=== PATIENT | female | born 1980 | race Caucasian/White ===

== ENCOUNTER 2023-05-31 21:06 | Outpatient (OUT) | payer OTHER, MEDICAID, SELFPAY ==
[2023-06-05 08:10] LABS: Age Gdln ACOG Testing Note (.); HPV Aptima Negative (Negative); IGP, Aptima HPV, rfx 16/18,45 Note (.)
== END 2023-05-31 21:07 | disposition home or self-care (01) ==
PROVIDERS: PCP Internal Medicine; Visit Provider Physician Assistant
DX: Z12.4 Encounter for screening for malignant neoplasm of cervix (principal); Z11.51 Encounter for screening for human papillomavirus (HPV)
CPT/HCPCS: 87624; G0145

== ENCOUNTER 2023-06-09 07:30 | Outpatient (OUT) | payer OTHER, MEDICAID, SELFPAY ==
[2023-06-09 08:25] LABS: Free T3 2.57 pg/mL (2.18-3.98); Thyroid Stimulating Hormone 0.176 uIU/mL (0.358-3.740)
[2023-06-09 09:11] LABS: Free T4 1.13 ng/dL (0.76-1.46)
== END 2023-06-09 07:31 | disposition home or self-care (01) ==
LOC: LAB 07:35
PROVIDERS: PCP Internal Medicine; Visit Provider Physician Assistant
DX: E03.9 Hypothyroidism, unspecified (principal)
CPT/HCPCS: 36415; 84439; 84443; 84481

== ENCOUNTER 2024-08-21 19:54 | Outpatient (REF) | payer OTHER, MEDICAID, SELFPAY ==
[2024-08-28 12:09] LABS: Age Gdln ACOG Testing Note (.); HPV Aptima Negative (Negative); IGP, Aptima HPV, rfx 16/18,45 Note (.)
== END 2024-08-21 19:55 | disposition home or self-care (01) ==
LOC: LAB 19:54
PROVIDERS: Visit Provider Physician Assistant
DX: Z01.419 Encounter for gynecological examination (general) (routine) without abnormal findings (principal)
CPT/HCPCS: 88175

== ENCOUNTER 2025-09-01 21:18 | Outpatient (REF) | payer MEDICAID, SELFPAY ==
--- OUTSIDE RECORDS SUMMARY | 2025-09-01 15:40 | XMS_ITS | Encounter Summary ---
Author Organization [facility] Address [address] [place] [address] Care Team Providers Care Concrete Smoother Name Role Phone [place]enn whitten Primary Care Provider [phone] Reason for Visit * Reason Comments Gynecologic Exam Encounter Details Date Type Department Care Team (Late st Contact Info) Description 09/01/2025 3:40 PM EDT Office Visit [facility] [address] [facility] [phone] Vj Gómez DO [address] [facility] [place] [address] Well woman exam with routine gynecological exam; Encounter for screening mammogram for malignant neoplasm of breast; Encounter for weight management Social History Tobacco Use Types Packs/Day Years Used Date Smoking Tobacco: Former Cigarettes Smokeless Tobacco: Never Comments:21-30 cigs a day Alcohol Use Standard Drinks/Week Comments Yes 0 (1 standard drink = 0.6 oz pure alcohol) Caffeine intake: 1-2 cups per day Humiliation, Afraid, Rape, and Kick questionnair e Answer Date Recorded Within the last year, have y ou been afraid of your partner or ex-partner? No 08/02/2023 Within the last year, have y ou been humiliated or emotionally abused in other ways by your partner or ex-partner? No Within the last year, have y ou been kicked, hit, slapped, or otherwise physically hurt by your partner or ex-partner? No 08/02/2023 Within the last year, have y ou been raped or forced to have any kind of sexual activity by your partner or ex-partner? No 08/02/2023 Social Connection and Isolation Panel Answer Date Recorded In a typical week, how many times do you talk on the phone with family, friends, or neighbors? More than three times a week 08/02/2023 How often do you get togethe r with friends or relatives? Once a week 08/02/2023 How often do you attend chur or sabianism services? 1 to 4 times per year 08/02/2023 Do you belong to any clubs o r organizations such as jewish groups, unions, fraternal or athletic groups, or school groups? No 08/02/2023 How often do you attend meet ings of the clubs or organizations you belong to? Never 08/02/2023 Are you , , di vorced, , never , or living with a partner? Living with partner 08/02/2023 AUDIT-C Answer Date Recorded Q1: How often do you have a drink containing alc ohol? Monthly or less 08/02/2023 Q2: How many drinks containi ng alcohol do you have on a typical day when you are drinking? 1 or 2 08/02/2023 Q3: How often do you have si x or more drinks on one occasion? Never 08/02/2023 Overall Financial Resource Strain (CARDIA) Answe r Date Recorded How hard is it for you to pa y for the very basics like food, housing, medical care, and heating? Not hard at all 08/02/2023 PHQ-2 Answer Date Recorded Patient Health Questionnaire-2 Score 0 08/15/2025 [facility] - Occupational Stress Questionnaire Answer Date Recorded Do you feel stress - tense, restless, nervous, or anxious, or unable to sleep at night because your mind is troubled all the time - these days? Not at all 08/02/2023 Exercise Vital Sign Answer Date Recorde d On average, how many days pe r week do you engage in moderate to strenuous exercise (like a brisk walk)? 0 days 08/02/2023 On average, how many minutes do you engage in exercise at this level? 20 min 08/02/2023 Hunger Vital Sign Answer Date Recorded Within the past 12 months, y ou worried that your food would run out before you got the money to buy more. Never true 08/02/20 23 Within the past 12 months, t he food you bought just didn't last and you didn't have money to get more. Never true 08/02/2023 PRAPARE - Transportation Answer Date Re corded In the past 12 months, has l ack of transportation kept you from medical appointments or from getting medications? No 07/21 In the past 12 months, has l ack of transportation kept you from meetings, work, or from getting things needed for daily living? No 08/02/2023 Housing Stability Vital Sign Answer Rodrick e Recorded In the last 12 months, was t here a time when you were not able to pay the mortgage or rent on time? No 08/02/2023 In the last 12 months, how many places have you lived? 1 08/02/2023 In the last 12 months, was t here a time when you did not have a steady place to sleep or slept in a group home (including now)? No 08/02/2023 Comments No Sex and Gender Information Value Date Recorded Sex Assigned at Female 05/30/2023 6:47 PM EDT Legal Sex Female 6:58 PM EDT Gender Identity Female 05/30/2023 6:47 PM EDT Sexual Orientation Choose not to disclose 2022 6:47 PM EDT documented as of this encounter Last Filed Vital Signs Vital Sign Reading Time Taken Comments Blood Pressure 110/58 09/01/2025 4:02 PM EDT Pulse - - Temperature - - Respiratory Rate - - Oxygen Saturation - - Inhaled Oxygen Concentration - - Weight 73.4 kg (161 lb 12.8 oz) 09/01/2025 4:02 PM EDT Height 165.1 cm (5' 5 ) 09/01/2025 4:02 PM EDT Body Mass Index 26.92 09/01/2025 4:02 PM EDT documented in this encounter Plan of Treatment Upcoming Encounters Date Type Department Care Team (Late st Contact Info) Description 10/27/2025 3:30 PM EST Office Visit [facility] [address] [place] [address] [place] [address] Shayy Katz PA [address] [place] [address] [place] [address] 02/12/2026 9:20 AM EDT Office Visit [facility] [address] [facility] 230 [place] [address] Glenn Baker DO [address] [facility] 230 [place] [address] Scheduled Orders Name Type Priority Associated Diagnoses Orde r Schedule Bilateral screening mammogram Imaging Routine Encounter for screening mammogram for malignant neoplasm of breast Expected: 09/01/2025 (Approximate), Expires: 11/01/2026 THIN PREP TIS PAP AND HR HPV DNA Pathology and Cytology Routine Well woman exam with routine gynecological exam Ordered: 09/01/2025 documented as of this encounter Visit Diagnoses Diagnosis Well woman exam with routine gynecological exam Routine gynecological examination Encounter for screening mammogram for malignant neoplasm of breast Encounter for weight management documented in this encounter Care Teams Concrete Smoother Relationship Specialty Start Date End Date Glenn Baker DO [address] [facility] 230 [place] [address] PCP - General Family Medicine 10/07/24 documented as of this encounter
--- OUTSIDE RECORDS SUMMARY | 2025-09-01 21:21 | XMS_ITS | Encounter Summary ---
Author Organization [facility] Address [address] [place] [address] Care Team Providers Care Cathead Worker Name Role Phone Glenn Baker DO Unavailable [phone] Glenn Baker DO Primary Care Provider [phone] Reason for Visit * Reason Comments Med Refill Encounter Details Date Type Department Care Team (Late st Contact Info) Description 04/23/2025 Refill [facility] [address] [facility] [place] [address] [place] [phone] Glenn Baker DO [address] [facility] [place] [address] [place] [address] Metabolic syndrome Social History Tobacco Use Types Packs/Day Years [...] week 08/02/2023 How often do you attend [facility] or druze services? 1 to 4 times per year 08/02/2023 Do you belong to any clubs o r organizations such as tenriism groups, unions, fraternal or athletic groups, or [...] Date Recorded Patient Health Questionnaire-2 Score 0 08/02/2023 [facility] Occupat ional Health - Occupational Stress [...] money to buy more. Never true 08/02/20 Within the past 12 months, t he [...] place to sleep or slept in a penitentiary (including now)? No 08/02/2023 Comments No Sex and Gender Information Value Date Recorded Sex Assigned at Female 05/30/2023 6:47 PM EDT Legal Sex Female 6:58 PM EDT Gender Identity Female 05/30/2023 6:47 PM EDT Sexual Orientation Choose not to disclose 2022 6:47 PM EDT documented as of this encounter Miscellaneous Notes * Telephone Encounter - Alivia Luu MA - 04/23/2025 12:55 PM EDT duplicate documented in this encounter Plan of Treatment Upcoming Encounters Date Type Department Care Team (Late st Contact Info) Description 10/27/2025 3:30 PM EST Office Visit [facility] [address] [facility] [place] [phone] Shayy Katz PA [address] [facility] [address] [place], [place] [id number] 02/12/2026 9:20 AM EDT Office Visit [facility] [address] [place] [address] [place] [address] Glenn Baker DO [address] [place] [address] [place] [address] documented as of this encounter Visit Diagnoses Diagnosis Metabolic syndrome Dysmetabolic Syndrome X documented in this encounter Care Teams Cathead Worker Relationship Specialty Start Date End Date Glenn Baker DO [address] [facility] 230 [place] [address] PCP - Medical [place] [employer] 11/20/22 06/12/25 Glenn Baker DO [address] [facility] 230 [place] [address] PCP - General Family Medicine 10/07/24 documented as of this encounter
--- OUTSIDE RECORDS SUMMARY | 2025-09-01 21:21 | XMS_ITS | Encounter Summary ---
Author Organization [facility] Address [address] [place] [address] Care Team Providers Care Flue Tile Press Operator Name Role Phone Glenn Baker DO Unavailable [phone] Olivia Glenn Ena DO Primary Care Provider [phone] Encounter Details Date Type Department Care Team (Late st Contact Info) Description 08/29/2024 Orders Only [facility] [address] [place] [address] Gaby Mcelroy LPN [address] [place] [id number] Social History Tobacco Use Types Packs/Day Years [...] week 08/02/2023 How often do you attend [facility] or moravian services? 1 to 4 times per year 08/02/2023 Do you belong to any clubs o r organizations such as synagogue groups, unions, fraternal or athletic groups, or [...] Recorded Patient Health Questionnaire-2 Score 0 08/02/2023 [facility] Occupat ional Health - Occupational Stress [...] place to sleep or slept in a assisted (including now)? No 08/02/2023 Comments No Sex and Gender Information Value Date Recorded Sex Assigned at Female 05/30/2023 6:47 PM EDT Legal Sex Female 6:58 PM EDT Gender Identity Female 05/30/2023 6:47 PM EDT Sexual Orientation Choose not to disclose 2022 6:47 PM EDT documented as of this encounter Plan of Treatment Upcoming Encounters Date Type Department Care Team (Late st Contact Info) Description 10/27/2025 3:30 PM EST Office Visit [facility] [address] [facility] [place] [address] Shayy Katz PA [address] [facility] [place] [address] 02/12/2026 9:20 AM EDT Office Visit [facility] [address] [facility] 230 [place] [phone] Glenn Baker DO [address] [place] 230 [place] [address] documented as of this encounter Procedures Procedure Name Priority Date/Time Associated Diagnosis Comments PAP SMEAR Routine 08/21/2024 12:00 AM EDT documented in this encounter Results * Pap Smear (08/21/2024 12:00 AM EDT) Swab Cervical swab / Unknown [facility] ORDER[facility]LES Final Re sult EXTERNAL LAB documented in this encounter Visit Diagnoses Not on filedocumented in this encounter Care Teams Flue Tile Press Operator Relationship Specialty Start Date End Date Glenn Baker DO [address] [place] [address] [place] [address] PCP - Medical [place] [employer] 11/20/22 06/12/25 Glenn Baker DO [address] [place] 230 [place] [address] PCP - General Family Medicine 10/07/24 documented as of this encounter
--- OUTSIDE RECORDS SUMMARY | 2025-09-01 21:22 | XMS_ITS | Encounter Summary ---
Author Organization [facility] Address [address] [place] [address] Care Team Providers Care Material Combiner Name Role Phone Glenn Baker DO Unavailable [phone] Shaikh ILIA Dickens Primary Care Provider [phone] Glenn Baker DO Primary Care Provider [phone] Encounter Details Date Type Department Care Team (Late st Contact Info) Description 08/05/2024 Abstract [facility] [address] [facility] [place] [phone] Vj Gómez DO [address] [facility] [address] [place], [facility] Social History Tobacco Use Types Packs/Day Years [...] How often do you attend chur or gnosticism services? 1 to 4 times per year 08/02/2023 Do you belong to any clubs o r organizations such as advent groups, unions, fraternal or athletic groups, or [...] Recorded Patient Health Questionnaire-2 Score 0 08/02/2023 [facility] Occupat ional Health - [...] place to sleep or slept in a correction (including now)? No 08/02/2023 Comments No Sex [...] PM EST Office Visit [facility] [address] [facility] [place] [address] Shayy Katz PA [address] [facility] [address] [place], [place] [phone] 02/12/2026 9:20 AM EDT Office Visit [facility] [address] [place] [address] [place] [phone] Glenn Baker, DO [address] [place] [address] [place], [place] [phone] documented as of this encounter Visit Diagnoses Not on filedocumented in this encounter Care Teams Material Combiner Relationship Specialty Start Date End Date Glenn Baker DO [address] [place] [address] [place] [address] PCP - Medical [place] [employer] 11/20/22 06/12/25 Shaikh Dickens MD [address] [place] 230 [place] [address] PCP - General Internal Medicine 07/18/24 08/20/24 Glenn Baker DO [address] [place] [address] [place] [address] PCP - General Family Medicine 10/07/24 documented as of this encounter
--- OUTSIDE RECORDS SUMMARY | 2025-09-01 21:22 | XMS_ITS | Encounter Summary ---
Author Organization [facility] Address [address] [place] [address] Care Team Providers Care Nutrition Aides Teacher Name Role Phone Glenn Baker DO Unavailable [phone] Glenn Baker DO Primary Care Provider [phone] Reason for Visit * Reason Comments Med Refill Encounter Details Date Type Department Care Team (Late st Contact Info) Description 04/22/2025 Refill [facility] [address] [facility] [place] [phone] Shayy Katz PA [address] [facility] [address] [place], [facility] Metabolic syndrome Social History Tobacco Use Types [...] week 08/02/2023 How often do you attend [facility] or muslim services? 1 to 4 times per year 08/02/2023 Do you belong to any clubs o r organizations such as muslim groups, unions, fraternal or athletic groups, or [...] Recorded Patient Health Questionnaire-2 Score 0 08/02/2023 [facility] Occupat ional Health - Occupational Stress [...] PM EST Office Visit [facility] [address] [facility] [place] [phone] Shayy Katz PA [address] [facility] [place] [address] 02/12/2026 9:20 AM EDT Office Visit [facility] [address] [place] [address] [place] [phone] Glenn Baker DO [address] [place] [address] [place] [address] documented as of this encounter Visit Diagnoses Diagnosis Metabolic syndrome Dysmetabolic Syndrome X documented in this encounter Care Teams Nutrition Aides Teacher Relationship Specialty Start Date End Date Glenn Baker DO [address] [place] 230 [place] [address] PCP - Medical [place] [employer] 11/20/22 06/12/25 Glenn Baker DO [address] [facility] 230 [place] [address] PCP - General Family Medicine 10/07/24 documented as of this encounter
--- OUTSIDE RECORDS SUMMARY | 2025-09-01 21:22 | XMS_ITS | Encounter Summary ---
Author Organization [facility] Address [address] [place] [address] Care Team Providers Care Industrial Energy Engineer Name Role Phone Glenn Baker DO Primary Care Provider Encounter Details Date Type Department Care Team (Late st Contact Info) Description 08/21/2025 [facility] [address] [facility] [place] 230 [place] [phone] Glenn Baker DO [address] [facility] [place] [address] [place] [address] Tsh+free t4, T3, free, Hemoglobin A1c, Additional followed-up results: 4 Social History Tobacco Use Types Packs/Day Years [...] week 08/02/2023 How often do you attend [facility] or baptism services? 1 to 4 times per year 08/02/2023 Do you belong to any clubs o r organizations such as worship groups, unions, fraternal or athletic groups, or [...] Recorded Patient Health Questionnaire-2 Score 0 08/15/2025 [facility] of Occupat ional Health - Occupational [...] place to sleep or slept in a longterm (including now)? No 08/02/2023 Comments No Sex [...] PM EST Office Visit [facility] [address] [facility] [place] [phone] Shayy Katz PA [address] [facility] [place] [address] 02/12/2026 9:20 AM EDT Office Visit [facility] [address] [place] [address] [place] [address] Glenn Baker DO [address] [place] [address] [place] [address] documented as of this encounter Visit Diagnoses Not on filedocumented in this encounter Care Teams Industrial Energy Engineer Relationship Specialty Start Date End Date Glenn Baker DO [address] [address] PCP - General Family Medicine 10/07/24 documented as of this encounter
--- OUTSIDE RECORDS SUMMARY | 2025-09-01 21:22 | XMS_ITS | Clinical Summary ---
Author Organization [facility] Address [address] [place] [address] Care Team Providers Care Director Distribution Name Role Phone BloomfieldGlenn whitten Primary Care Provider Allergies Active Allergy Reactions Criticality Noted Date Comments Latex 05/30/2023 Nsaids 08/13/2025 Other Reaction(s): Unknown Sulfamethoxazole Dermatitis,Diarrhea, Hiv es,Itching,Rash Low 08/02/2023 Medications cholecalciferol (Vitamin D-3) 25 MCG (1000 UT) capsule Vitamin D3 Active chlorhexidine (Peridex) 0.12 % solution Rinse 15 mL twice daily after breakfast and before bedtime NEEDED FOR 30 DAYS 024 Active albuterol HFA 90 mcg/act inhalerIndicatio ns:Shortness of breath INHALE 2 PUFFS BY MOUTH EVERY 4 HOURS NEEDED FOR WHEEZING 18 g 11 025 Active levothyroxine (Synthroid, Levoxyl) 50 MCG tabletIndication s:Postoperative hypothyroidism Take 1 tablet (50 mcg) by mouth in the morning. Take before meals. 90 tablet 3 025 Active liothyronine (Cytomel) 5 MCG tabletIndication s:Postoperative hypothyroidism Take 1 tablet (5 mcg) by mouth Daily 30 tablet 025 Active Tirzepatide (Mounjaro) 7.5 MG/0.5ML solution auto-injectorInd ications:Metabol ic syndrome Inject 7.5 mg under the skin 1 (one) time per week 2 mL 11 09/26/2 025 Active pantoprazole (Protonix) 40 MG EC tabletIndication s:Gastroesophage al reflux disease without esophagitis Take 1 tablet (40 mg) by mouth in the morning. Take before meals. 90 tablet 3 Active sucralfate (Carafate) 1 g tabletIndication s:Gastroesophage al reflux disease without esophagitis Take 1 tablet (1 g) by mouth every 6 (six) hours if needed (reflux) 120 tablet Active famotidine (Pepcid) 20 MG tabletIndication s:Chronic peptic ulcer, site unspecified, without hemorrhage or perforation Take 1 tablet (20 mg) by mouth Daily 30 tablet 3 Active escitalopram (Lexapro) 20 MG tabletIndication s:Anxiety and depression Take 1 tablet (20 mg) by mouth in the morning. 30 tablet 11 Active fluticasone (Flonase) 50 MCG/ACT nasal sprayIndications :Allergic rhinitis, unspecified seasonality, unspecified trigger Administer 2 sprays into each nostril in the morning and 2 sprays before bedtime. Shake gently. Before first use, prime pump. After use, clean tip and replace cap. 32 g Active levocetirizine (Xyzal) 5 MG tabletIndication s:Allergic rhinitis, unspecified seasonality, unspecified trigger Take 1 tablet (5 mg) by mouth Daily 90 tablet 3 Active phentermine (Adipex-P) 37.5 MG tabletIndication s:Encounter for weight management Take 1 tablet (37.5 mg) by mouth in the morning. Take before meals. 30 tablet 025 2024 Active escitalopram (Lexapro) 20 MG tabletIndication s:Anxiety and depression Take 1 tablet (20 mg) by mouth in the morning. 30 tablet 11 024 2024 Discontinued(R eorder) levocetirizine (Xyzal) 5 MG tabletIndication s:Allergic rhinitis, unspecified seasonality, unspecified trigger Take 1 tablet (5 mg) by mouth Daily 90 tablet 3 024 2024 Discontinued(R eorder) levothyroxine (Synthroid, Levoxyl) 50 MCG tabletIndication s:Postoperative hypothyroidism Take 1 tablet (50 mcg) by mouth in the morning. Take before meals. 90 tablet 3 2024 Discontinued(R eorder) pantoprazole (Protonix) 40 MG EC tabletIndication s:Gastroesophage al reflux disease without esophagitis Take 1 tablet (40 mg) by mouth in the morning. Take before meals. 90 tablet 3 2024 Discontinued(R eorder) fluticasone (Flonase) 50 MCG/ACT nasal sprayIndications :Allergic rhinitis, unspecified seasonality, unspecified trigger Administer 2 sprays into each nostril in the morning and 2 sprays before bedtime. Shake gently. Before first use, prime pump. After use, clean tip and replace cap.. 32 g 11 2024 Discontinued(R eorder) liothyronine (Cytomel) 5 MCG tabletIndication s:Postoperative hypothyroidism TAKE 1 TABLET BY MOUTH DAILY 30 tablet 6 2024 Discontinued(R eorder) buPROPion (Wellbutrin) 75 MG tabletIndication s:Overweight Take 2 tablets (150 mg) by mouth in the morning and 2 tablets (150 mg) before bedtime. 120 tablet 11 2024 Discontinued naltrexone (Depade) 50 MG tabletIndication s:Overweight Take 1 tablet (50 mg) by mouth Daily 30 tablet 11 2024 Discontinued famotidine (Pepcid) 20 MG tabletIndication s:Chronic peptic ulcer, site unspecified, without hemorrhage or perforation TAKE 1 TABLET BY MOUTH DAILY 30 tablet 3 2024 Discontinued(R eorder) sucralfate (Carafate) 1 g tabletIndication s:Gastroesophage al reflux disease without esophagitis TAKE 1 TABLET BY MOUTH FOUR TIMES DAILY NEEDED 120 tablet 3 2024 Discontinued(R eorder) Mounjaro 7.5 MG/0.5ML solution auto-injectorInd ications:Metabol ic syndrome INJECT 7.5mg SUBCUTANEOUSLY (UNDER THE SKIN) ONCE A WEEK 2 mL 5 Discontinued(R eorder) liothyronine (Cytomel) 5 MCG tabletIndication s:Postoperative hypothyroidism Take 1 tablet (5 mcg) by mouth Daily 30 tablet 025 2024 Discontinued(R eorder) fluconazole (Diflucan) 150 MG tabletIndication s:Yeast infection Take 1 tablet (150 mg) by mouth 1 (one) time for 1 dose This is a 1 time dose, take single tablet by mouth. 1 tablet 1 025 2024 Hospital, Clinic, or Other Facility Administered Medication Ordered Dose Route Frequency Start Date End Date Status ketorolac (Toradol) injection 30 mgIndications:Right hip pain 30 mg IM Once 08/15/2025 08/15/2025 Ended Active Problems Problem Noted Date Diagnosed Date Osteoarthritis of knee 08/13/2025 Chondromalacia 08/13/2025 Chondromalacia of left knee 08/13/2025 Peripheral venous insufficiency 08/21/2024 Allergic rhinitis 08/01/2023 Insulin resistance 08/01/2023 Internal derangement of left knee 08/01/2023 Multinodular goiter 08/01/2023 Nontoxic single thyroid nodule 08/01/2023 Post-operative hypothyroidism 08/01/2023 Smoker 08/01/2023 Hypothyroidism 08/29/2013 Palpitations 08/29/2013 Tachycardia 08/29/2013 Encounters Date Type Department Care Team Description 09/01/2025 3:40 PM EDT [facility] Visit [facility] [address] [place] [address] Vj Gómez DO Well woman exam with routine gynecological exam; Encounter for screening mammogram for malignant neoplasm of breast; Encounter for weight management 09/01/2025 Bamboo flowsheet [facility] [address] [place] [address] Vj Gómez DO 08/22/2025 Telephone [facility] [address] [place] [address] Bharati Gordillo MA 08/21/2025 Results Follow-Up [facility] [address] [place] [phone] Glenn Baker, DO Tsh+free t4, T3, free, Hemoglobin A1c, Additional followed-up results: 4 08/15/2025 9:00 AM EDT Office Visit [facility] [address] [place] [phone] Glenn Baker, Postoperative hypothyroidism ; Metabolic syndrome; Gastroesophageal reflux disease without esophagitis; Chronic peptic ulcer, site unspecified, without hemorrhage or perforation; Anxiety and depression ; Allergic rhinitis, unspecified seasonality, unspecified trigger; Insulin resistance; Encounter for screening for coronary artery disease; Right hip pain 08/15/2025 Bamboo flowsheet [facility] [address] [place] [id number] Glenn Baker, 08/15/2025 Travel 08/04/2025 Refill [facility] [address] [place] [phone] Alivia Luu MA Postoperative hypothyroidism ; Insulin resistance; Encounter for screening for coronary artery disease; Screening for colon cancer from Last 3 Months Family History Medical History Relation Name Comments No Known Problems Daughter Cancer Father Americo Throat cancer Father Americo Diabetes Maternal Grandfather Chin Heart disease Maternal Grandfather Chin Stroke Maternal Grandfather Chin Arthritis Maternal Grandmother Kacey Diabetes Maternal Grandmother Kacey Mental illness Maternal Grandmother Kacey Stroke Maternal Grandmother Kacey Cancer Mother Dolores Diabetes Mother Dolores Learning disabilities Mother Dolores Lung cancer Mother Dolores Stroke Paternal Grandfather Chin Cancer Paternal Grandmother Kacey No Known Problems Son Relation Name Status Comments Daughter Alive Father Americo Maternal Grandfather Chin Maternal Grandmother Kacey Mother Dolores Alive Paternal Grandfather Chin Paternal Grandmother Kacey Sister 1 Alive 2 sisters Sister 2 Alive Son Alive Social History Tobacco Use Types Packs/Day Years Used Date Smoking Tobacco: Former Cigarettes Smokeless Tobacco: Never Tobacco Cessation:Counseling Given: Yes Comments:21-30 cigs a day Alcohol Use Standard [...] week 08/02/2023 How often do you attend formerly [facility] or anabaptism services? 1 to 4 times per year 08/02/2023 Do you belong to any clubs o r organizations such as episcopal groups, unions, fraternal or athletic groups, or [...] Recorded Patient Health Questionnaire-2 Score 0 08/15/2025 [facility] - [...] place to sleep or slept in a skilled nursing (including now)? No 08/02/2023 Comments No Sex and Gender Information Value Date Recorded Sex Assigned at Female 05/30/2023 6:47 PM EDT Legal Sex Female 6:58 PM EDT Gender Identity Female 05/30/2023 6:47 PM EDT Sexual Orientation Choose not to disclose 2022 6:47 PM EDT Last Filed Vital Signs Vital Sign Reading Time Taken Comments Blood Pressure 110/58 09/01/2025 4:02 PM EDT Pulse 93 08/15/2025 8:59 AM EDT Temperature 36.1 C (97 F) 08/15/2025 8:59 AM EDT Respiratory Rate - - Oxygen Saturation 97% 08/15/2025 8:59 AM EDT Inhaled Oxygen Concentration - - Weight 73.4 kg (161 lb 12.8 oz) 09/01/2025 4:02 PM EDT Height 165.1 cm (5' 5 ) 09/01/2025 4:02 PM EDT Body Mass Index 26.92 09/01/2025 4:02 PM EDT Plan of Treatment Upcoming Encounters Date Type Department Care Team (Late st Contact Info) Description 10/27/2025 3:30 PM EST Office Visit [facility] [address] [place] [address] Shayy Katz PA [address] [place] [address] 02/12/2026 9:20 AM EDT Office Visit [facility] [address] [place] [phone] Glenn Baker DO [address] [place] [address] Health Maintenance Due Date Last Done Comments CT Colonography 1979 Colonoscopy 1979 FIT 1979 FOBT 1979 Sigmoidoscopy 1979 Influenza Vaccine (#1) 2025 Mammogram 10/28/2025 10/28/2024, 07/19/2023 Colorectal Cancer Screening 08/18/2028 FIT-DNA 08/18/2028 08/18/2025 Cervical Cancer Screening Discontinued Pap Smear Discontinued 08/21/2024, 05/31/2023, 03/21 HPV/Cotest Discontinued Procedures Procedure Name Priority Date/Time Associated Diagnosis Comments LAB COLOGUARD COLON CANCER SCREEN Routine 08/18/2025 10:44 AM EDT Screening for colon cancer LIPID PANEL Routine 08/13/2025 9:51 AM EDT Postoperative hypothyroidism Insulin resistance Encounter for screening for coronary artery disease COMPREHENSIVE METABOLIC PANEL Routine 08/13/2025 9:51 AM EDT Postoperative hypothyroidism Insulin resistance Encounter for screening for coronary artery disease CBC (INCLUDES DIFF/PLT) Routine 08/13/2025 9:51 AM EDT Postoperative hypothyroidism Insulin resistance Encounter for screening for coronary artery disease HEMOGLOBIN A1C Routine 08/13/2025 9:51 AM EDT Insulin resistance T3, FREE Routine 08/13/2025 9:51 AM EDT Postoperative hypothyroidism TSH+FREE T4 Routine 08/13/2025 9:51 AM EDT Postoperative hypothyroidism BI MAMMOGRAM DIAGNOSTIC TOMOSYNTHESIS BILATERAL Routine 10/28/2024 2:13 PM EST Mass of upper outer quadrant of left breast PAP SMEAR Routine 08/21/2024 12:00 AM EDT from Last 3 Months or Most Recently Relevant to Health Maintenance Results * Cologuard?? colon cancer screening (08/18/2025 10:44 AM EDT) NONINV COLON CA DNA+OCC BLD SCRN STL-IMP Negative Negative 08/21/2025 5:22 AM EDT [facility] (CLIA #:[id number]) Comment: The Cologuard (TM) test was performed on this specimen. NEGATIVE TEST RESULT. A negative Cologuard result indicates a low likelihood that a colorectal cancer (CRC) or advanced adenoma (adenomatous polyps with more advanced pre-malignant features) is present. The chance that a person with a negative Cologuard test has a colorectal cancer is less than 1 in 1500 (negative predictive value >99.9%) or has an advanced adenoma is less than 5.3% (negative predictive value 94.7%). These data are based on a prospective cross-sectional study of 10,000 individuals at average risk for colorectal cancer who were screened with both Cologuard and colonoscopy. (Subha Reno al, N Engl J Med 2014;370(14):1286- 1297) The normal value (reference range) for this assay is negative. COLOGUARD RE-SCREENING RECOMMENDATION: Periodic colorectal cancer screening is an important part of preventive healthcare for asymptomatic individuals at average risk for colorectal cancer. Following a negative Cologuard result, the [place] Cancer Society and U.S. Multi-Society Task Force screening guidelines recommend a Cologuard re-screening interval of 3 years. References: [place] [employer] Society Guideline for Colorectal Cancer Screening: https://www.cancer.org/cancer/xrans-pkjpsc-crjhna/ifcutuyuz-tmvqphvvt-tpxznoo/ac s-rec ommendations.html.; Mynor DK, Zahida OLGUIN, Tray YaK, Colorectal Cancer Screening: Recommendations for Physicians and Patients from the U.S. Multi-Society Task Force on Colorectal Cancer Screening , Am J Gastroenterology 2017; 112:6472-2542. TEST DESCRIPTION: Composite algorithmic analysis of stool DNA-biomarkers with hemoglobin immunoassay. Quantitative values of individual biomarkers are not reportable and are not associated with individual biomarker result reference ranges. Cologuard is intended for colorectal cancer screening of adults of either sex, 45 years or older, who are at average-risk for colorectal cancer (CRC). Cologuard has been approved for use by the U.S. FDA. The performance of Cologuard was established in a cross sectional study of average-risk adults aged 50-84. Cologuard performance in patients ages 45 to 49 years was estimated by sub-group analysis of near-age groups. Colonoscopies performed for a positive result may find as the most clinically significant lesion: colorectal cancer [4.0%], advanced adenoma (including sessile serrated polyps greater than or equal to 1cm diameter) [20%] or non- advanced adenoma [31%]; or no colorectal neoplasia [45%]. These estimates are derived from a prospective cross-sectional screening study of 10,000 individuals at average risk for colorectal cancer who were screened with both Cologuard and colonoscopy. (Subha Boyd et al, N Engl J Med 2014;370(14):1778-8777.) Cologuard may produce a false negative or false positive result (no colorectal cancer or precancerous polyp present at colonoscopy follow up). A negative Cologuard test result does not guarantee the absence of CRC or advanced adenoma (pre-cancer). The current Cologuard screening interval is every 3 years. ([place] [employer] Society and U.S. Multi-Society Task Force). Cologuard performance data in a 10,000 patient pivotal study using colonoscopy as the reference method can be accessed at the following location: www.[employer]/results. Additional description of the Cologuard test process, warnings and precautions can be found at www.cologParents Journeyrd.com. Stool specimen (specimen) 08/18/2025 10:44 AM EDT 08/19/2025 11:29 AM EDT Glenn Baker DO LAB MOLECULAR DIAGNOSTICS OR DERABLES Final Result [facility] (CLIA #:[id number]) [address] [place] [address], * (ABNORMAL) Tsh+free t4 (08/13/2025 9:51 AM EDT) TSH 0.17(L) mIU/L [facility] Comment: Reference Range > or = 20 Years 0.40-4.50 Ranges First trimester 0.26-2.66 Second trimester 0.55-2.73 Third trimester 0.43-2.91 T4, FREE 1.1 0.8 - 1.8 ng/dL [facility] Blood Venous blood specimen / Unknown 08/13/2025 9:51 AM EDT 08/13/2025 9:52 AM EDT Narrative Resulting Agency Comment Performing Organization Information Site ID: QPT Name: [facility] Address: [address] [place] [address], [address] [place] [phone] Director: Clifford Shelley MD Glenn Baker DO LAB BLOOD ORDERABLES Final R esult [facility] * CBC and differential (08/13/2025 9:51 AM EDT) WHITE BLOOD CELL COUNT 5.3 3.8 - 10.8 Thousand/u L [facility] RED BLOOD CELL COUNT 4.43 3.80 - 5.10 Million/uL [facility] HEMOGLOBIN 13.8 11.7 - 15.5 g/dL [facility] HEMATOCRIT 41.4 35.0 - 45.0 % [facility] MCV 93.5 80.0 - 100.0 fL [facility] MCH 31.2 27.0 - 33.0 pg [facility] MCHC 33.3 32.0 - 36.0 g/dL [facility] Comment: For adults, a slight decrease in the calculated MCHC value (in the range of 30 to 32 g/dL) is most likely not clinically significant; however, it should be interpreted with caution in correlation with other red cell parameters and the patient's clinical condition. RDW 13.3 11.0 - 15.0 % [facility] PLATELET COUNT 326 140 - 400 Thousand/u L [facility] MPV 9.8 7.5 - 12.5 fL [facility] ABSOLUTE NEUTROPHILS 3,498 1,500 - 7,800 cells/uL [facility] ABSOLUTE LYMPHOCYTES 1,203 850 - 3,900 cells/uL [facility] ABSOLUTE MONOCYTES 408 200 - 950 cells/uL [facility] ABSOLUTE EOSINOPHILS 122 15 - 500 cells/uL [facility] ABSOLUTE BASOPHILS 69 0 - 200 cells/uL [facility] NEUTROPHILS 66 % [facility] LYMPHOCYTES 22.7 % [facility] MONOCYTES 7.7 % [facility] EOSINOPHILS 2.3 % [facility] BASOPHILS 1.3 % [facility] Blood Venous blood specimen / Unknown 08/13/2025 9:51 AM EDT 08/13/2025 9:52 AM EDT Narrative Resulting Agency Comment Performing Organization Information Site ID: QPT Name: [facility] Address: [address] [place] [phone] Director: Clifford Shelley MD us Glenn Baker DO LAB BLOOD ORDERABLES Final R esult [facility] * T3, free (08/13/2025 9:51 AM EDT) T3, FREE 3.2 2.3 - 4.2 pg/mL [facility] Blood Venous blood specimen / Unknown 08/13/2025 9:51 AM EDT 08/13/2025 9:52 AM EDT Narrative Resulting Agency Comment Performing Organization Information Site ID: QPT Name: [facility] Address: [address] [place] [address] , [address] [place] [phone] Director: Clifford Shelley MD Glenn Baker DO LAB BLOOD ORDERABLES Final R esult Performing Organization Address [facility] de Phone Number [facility] * Hemoglobin A1c (08/13/2025 9:51 AM EDT) Hemoglobin A1C 4.9 <5.7 % [facility] Comment: For the purpose of screening for the presence of diabetes: <5.7% Consistent with the absence of diabetes 5.7-6.4% Consistent with increased risk for diabetes (prediabetes) > or =6.5% Consistent with diabetes This assay result is consistent with a decreased risk of diabetes. Currently, no consensus exists regarding use of hemoglobin A1c for diagnosis of diabetes in children. According to [place] Diabetes Association (ADA) guidelines, hemoglobin A1c <7.0% represents optimal control in non- diabetic patients. Different metrics may apply to specific patient populations. Standards of Medical Care in Diabetes(ADA). Blood Venous blood specimen / Unknown 08/13/2025 9:51 AM EDT 08/13/2025 9:52 AM EDT Narrative Resulting Agency Comment Performing Organization Information Site ID: QPT Name: [facility] Address: Steven Davey , [address] [place] [phone] Director: Clifford Shelley MD Glenn aBker DO LAB BLOOD ORDERABLES Final R esult Performing Organization Address [facility] de Phone Number [facility] * Lipid panel (08/13/2025 9:51 AM EDT) CHOLESTEROL, TOTAL 157 <200 mg/dL [facility] HDL CHOLESTEROL 64 > OR = 50 mg/dL [facility] TRIGLYCERIDES 84 <150 mg/dL [facility] LDL CHOLESTEROL 77 mg/dL (calc) [facility] Comment: Reference range: <100 Desirable range <100 mg/dL for primary prevention; <70 mg/dL for patients with CHD or diabetic patients with > or = 2 CHD risk factors. LDL-C is now calculated using the Alyce calculation, which is a validated novel method providing better accuracy than the Friedewald equation in the estimation of LDL-C. Kevin SS et al. ROD. 2013;310(19): 9183-2630 (http://education.[employer].com/faq/DVL837) CHOL/HDLC RATIO 2.5 <5.0 (calc) [facility] NON HDL CHOLESTEROL 93 <130 mg/dL (calc) [facility] Comment: For patients with diabetes plus 1 major ASCVD risk factor, treating to a non-HDL-C goal of <100 mg/dL (LDL-C of <70 mg/dL) is considered a therapeutic option. Blood Venous blood specimen / Unknown 08/13/2025 9:51 AM EDT 08/13/2025 9:52 AM EDT Narrative Resulting Agency Comment Performing Organization Information Site ID: QPT Name: [facility] Address: [address] [place] [address], [address] [place] [phone] Director: Clifford Shelley MD Glenn Baker DO LAB BLOOD ORDERABLES Final R esult [facility] * Comprehensive metabolic panel (08/13/2025 9:51 AM EDT) Glucose 79 65 - 99 mg/dL [facility] Comment: Fasting reference interval BUN 12 7 - 25 mg/dL [facility] Creatinine 0.81 0.50 - 0.99 mg/dL [facility] EGFR 91 > OR = 60 mL/min/1. 73m2 [facility] BUN/CREATININE RATIO SEE NOTE: 6 - 22 (calc) [facility] Comment: Not Reported: BUN and Creatinine are within reference range. Sodium 137 135 - 146 mmol/L [facility] Potassium, Bld 4.4 3.5 - 5.3 mmol/L [facility] Chloride 104 98 - 110 mmol/L [facility] Carbon Dioxide 28 20 - 32 mmol/L [facility] Calcium 9.9 8.6 - 10.2 mg/dL [facility] PROTEIN, TOTAL 6.8 6.1 - 8.1 g/dL [facility] ALBUMIN 4.2 3.6 - 5.1 g/dL [facility] GLOBULIN 2.6 1.9 - 3.7 g/dL (calc) [facility] ALBUMIN/GLOBULIN RATIO 1.6 1.0 - 2.5 (calc) [facility] BILIRUBIN, TOTAL 0.4 0.2 - 1.2 mg/dL [facility] ALKALINE PHOSPHATASE 43 31 - 125 U/L [facility] AST 13 10 - 35 U/L [facility] ALT 12 6 - 29 U/L [facility] Blood Venous blood specimen / Unknown 08/13/2025 9:51 AM EDT 08/13/2025 9:52 AM EDT Narrative Resulting Agency Comment Performing Organization Information Site ID: QPT Name: [facility] Address: [address] [place] [address], [address] [place] [phone] Director: Clifford Shelley MD us Glenn Sutherland [place] DO LAB BLOOD ORDERABLES Final R esult [facility] * Bilateral diagnostic mammogram with tomosynthesis (10/28/2024 2:13 PM EST) Anatomical Region Laterality Modality Breast Bilateral Mammography 10/28/2024 2:36 PM EST Impressions 10/28/2024 2:48 PM EST No specific evidence of malignancy seen in either breast. BIRADS 2 - Benign Findings DENSITY: The breasts are heterogeneously dense, which may obscure small masses. FOLLOW-UP: Routine Screening Mammogram Board Certified Radiologists. Accredited by the ACR and FDA. MAMMOGRAPHY IS VERY IMPORTANT TO YOUR HEALTH. THE [place] [employer] SOCIET[employer] GUIDELINES RECOMMEND THAT WOMEN 40 YEARS OF AGE AND OLDER SHOULD HAVE A MAMMOGRAM EVERY YEAR. A REMINDER LETTER WILL BE SENT AT THE APPROPRIATE TIME. ELECTRONICALLY SIGNED BY: Javier Hand M.D. Narrative 10/28/2024 2:48 PM EST EXAMINATION: BI MAMMOGRAM DIAGNOSTIC TOMOSYNTHESIS BILATERAL CLINICAL HISTORY: L breast lump upper outer quadrant TECHNIQUE: Diagnostic digital mammogram study of both breasts was performed with 2D and 3D tomosynthesis imaging. Study was compared to the screening mammogram study of the breasts dated 07/19/2023 and ultrasound study of the left breast dated 10/28/2024. FINDINGS: Breast tissue is heterogeneously dense bilaterally. There is no evidence of interval dominant spiculated mass, grouped microcalcifications or skin thickening which would be suggestive of malignancy. Ill-defined increased density in the upper outer portion of the right breast similar to the prior reviewed studies dating back to 06/28/2022 compatible with nodular tissue. Skin marker is placed in the area of clinically palpable lump which appears to correlate with the left axillary region on the MLO view, no obvious focal abnormality. There are grossly unremarkable appearing lymph nodes in the left axillary region which appear similar to the prior reviewed studies dating back to 06/28/2022. Ultrasound study performed today demonstrates 2 grossly unremarkable appearing lymph nodes in the left axillary region, no obvious ultrasound abnormality in the area of the lump. A single benign-appearing calcification is seen on the left. Right axillary lymph nodes are also suggested. Procedure Note Javier Hand MD - 10/28/2024 EXAMINATION: BI MAMMOGRAM DIAGNOSTIC TOMOSYNTHESIS BILATERAL CLINICAL HISTORY: L breast lump upper outer quadrant TECHNIQUE: Diagnostic digital mammogram study of both breasts wasperformed with 2D and 3D tomosynthesis imaging. Study was compared to thescreening mammogram study of the breasts dated 07/19/2023 and ultrasoundstudy of the left breast dated 10/28/2024. FINDINGS: Breast tissue is heterogeneously dense bilaterally. There is noevidence of interval dominant spiculated mass, grouped microcalcificationsor skin thickening which would be suggestive of malignancy. Ill-definedincreased density in the upper outer portion of the right breast similarto the prior reviewed studies dating back to 06/28/2022 compatible withnodular tissue. Skin marker is placed in the area of clinically palpable lump whichappears to correlate with the left axillary region on the MLO view, noobvious focal abnormality. There are grossly unremarkable appearing lymphnodes in the left axillary region which appear similar to the priorreviewed studies dating back to 06/28/2022. Ultrasound study performed todaydemonstrates 2 grossly unremarkable appearing lymph nodes in the leftaxillary region, no obvious ultrasound abnormality in the area of thelump. A single benign-appearing calcification is seen on the left. Rightaxillary lymph nodes are also suggested. IMPRESSION: No specific evidence of malignancy seen in either breast. BIRADS 2 - Benign Findings DENSITY: The breasts are heterogeneously dense, which may obscure smallmasses. FOLLOW-UP: Routine Screening Mammogram Board Certified Radiologists. Accredited by the ACR and FDA. MAMMOGRAPHY IS VERY IMPORTANT TO YOUR HEALTH. THE [place] CANCER SOCIETYGUIDELINES RECOMMEND THAT WOMEN 40 YEARS OF AGE AND OLDER SHOULD HAVE AMAMMOGRAM EVERY YEAR. A REMINDER LETTER WILL BE SENT AT THE APPROPRIATE TIME. ELECTRONICALLY SIGNED BY: Javier Hand M.D. us Glenn Baker DO IMG BI PROCEDURES Final Resu lt * Pap Smear (08/21/2024 12:00 AM EDT) Swab Cervical swab / Unknown us Shayy [facility] CYTOLOGY ORDERABLES Final Re sult EXTERNAL LAB from Last 3 Months or Most Recently Relevant to Health Maintenance Insurance [employer] [place] Care Teams Director Distribution Relationship Specialty Start Date End Date Glenn Baker DO [address] [place] [address] PCP - General Family Medicine 10/07/24
--- OUTSIDE RECORDS SUMMARY | 2025-09-01 21:22 | XMS_ITS | Patient Health Record ---
Author Organization [facility] in [place] Address [address] [place] [address] Care Team Providers Care Coal Bagger Name Role Phone EDWIN VIZCAINO DO Primary Care Provider [phone] Allergies Allergen (clinical drug ingredient) Drug/Non Drug Allergy documented on EMR Reaction Allergy Type Onset Date Status Non-steroidal anti-inflammatory agent (FN) NSAIDS (uncoded) Unknown Allergy Active Reason For Referral No Information Medications Medication SIG (Take, Route, Frequency, Duration) Notes Start Date End Date Status Belviq 10 MG 1 tablet Orally Twic e a day Active Levothyroxine Sodium 75 MCG 1 capsule Or ally as directed Active Voltaren 1 % as directed External ly TID; Duration: 1 02/27/2017 Active Problems Problem Type SNOMED Code ICD Code Onset Dates Problem Status W/U Status Risk Notes Problem Chondromalacia (78431194) Chondromalacia, 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) Active confirmed Problem Osteoarthritis of knee (058479356) Primary osteoarthritis of left knee (M17.12) Active confirmed Problem Chondromalacia (43386329) Chondromalacia (M94.20) Active confirmed Plan Of Treatment No Information Insurance Providers Payer Name Payer Address Payer Phone Subscriber Number Group Number Insured Name Patient Relationship to Insured Coverage Start Date Coverage End Date [employer] [address] [place] [address] [id number] Claudia Boston Self - patient is the insured Medications Administered Medication Instructions Date of Administration Dosage Notes Depo-Medrol, 40 mg/mL 08/22/2016 1 cL Methylprednisolone Acetate 40mg/mL 11/22/2016 1 mL Synvisc-One 48 mg (Z) 09/21/2016 6 mL Medical (General) History Medical History History ICD Code Ulcers Bladder/Kidney infections Thyroid Osteoarthritis Depression/Anxiety Surgical History Surgery Date(Month/Year) Knee Repair Meniscus 2016 Left Partial Thyroid 2014 Apendix 2014 Gallbladder 2013 Tubes tied/stomach scope 2015 Hospitalization History Reason Date(Month/Year) see above
--- OUTSIDE RECORDS SUMMARY | 2025-09-01 21:22 | XMS_ITS | Encounter Summary ---
Author Organization [facility] Address [address] [place] [address] Care Team Providers Care Dyeing Machine Back Tender Name Role Phone RingtownGlenn whitten Primary Care Provider [phone] Encounter Details Date Type Department Care Team (Late st Contact Info) Description 09/01/2025 Bamboo flowsheet [facility] [address] [place] [address] Vj Gómez DO [address] [place], [facility] Social History Tobacco Use Types Packs/Day [...] 08/02/2023 How often do you attend chur ch or protestant services? 1 to 4 times per year 08/02/2023 Do you belong to any clubs o r organizations such as oriental orthodox groups, unions, fraternal or athletic groups, or [...] Recorded Patient Health Questionnaire-2 Score 0 08/15/2025 [facility] - Occupational Stress Questionnaire Answer Date Recorded [...] the money to buy more. Never true 09/13/20 23 Within the past 12 months, t [...] place to sleep or slept in a fci (including now)? No 08/02/2023 Comments No Sex [...] PM EST Office Visit [facility] [address] [place] [phone] Shayy Katz PA [address] [place], [place] [address] 02/12/2026 9:20 AM EDT Office Visit [facility] [address] [place] [address] Glenn Baker DO [address] [place] [address] documented as of this encounter Visit Diagnoses Not on filedocumented in this encounter Care Teams Dyeing Machine Back Tender Relationship Specialty Start Date End Date Glenn Baker DO [address] [facility] [address] [place] [id number] PCP - General Family Medicine 10/07/24 documented as of this encounter
--- OUTSIDE RECORDS SUMMARY | 2025-09-01 21:22 | XMS_ITS | Encounter Summary ---
Author Organization [facility] Address [address] [place] [address] Care Team Providers Care Senior Windows Engineer Name Role Phone Glenn Baker Primary Care Provider [phone] Encounter Details Date Type Department Care Team (Late st Contact Info) Description 08/22/2025 Telephone [facility] [address] [place] [address] Bharati Gordillo MA [address] [address] Social History Tobacco Use Types Packs/Day Years [...] often do you attend chur ch or buddhism services? 1 to 4 times per year 08/02/2023 Do you belong to any clubs o r organizations such as sikhism groups, unions, fraternal or athletic groups, or [...] Recorded Patient Health Questionnaire-2 Score 0 08/15/2025 [facility] - Occupational Stress Questionnaire Answer Date [...] place to sleep or slept in a care home (including now)? No 08/02/2023 Comments No Sex and Gender Information Value Date Recorded Sex Assigned at Female 05/30/2023 6:47 PM EDT Legal Sex Female 6:58 PM EDT Gender Identity Female 05/30/2023 6:47 PM EDT Sexual Orientation Choose not to disclose 2022 6:47 PM EDT documented as of this encounter Miscellaneous Notes * Telephone Encounter - Bharati Gordillo MA - 08/22/2025 8:52 AM EDT Pt in need of diflucan. Rx was sent in. documented in this encounter Plan of Treatment Upcoming Encounters Date Type Department Care Team (Late st Contact Info) Description 10/27/2025 3:30 PM EST Office Visit [facility] [address] [place] [address] Shayy Katz PA [address] [facility] [address] [place], [place] [id number] 02/12/2026 9:20 AM EDT Office Visit [facility] [address] [place] [address] Glenn Baker DO [address] [place] [address] documented as of this encounter Visit Diagnoses Diagnosis Yeast infection documented in this encounter Care Teams Senior Windows Engineer Relationship Specialty Start Date End Date Glenn Baker DO [address] [facility] [address] [place] [address] PCP - General Family Medicine 10/07/24 documented as of this encounter
--- OUTSIDE RECORDS SUMMARY | 2025-09-01 21:22 | XMS_ITS | Encounter Summary ---
Author Organization [facility] Address [address] [place] [address] Care Team Providers Care Audio/Visual Operator Name Role Phone Glenn Baker DO Unavailable [phone] Glenn Baker DO Primary Care Provider [phone] Reason for Visit * Reason Comments Med Refill Encounter Details Date Type Department Care Team (Late st Contact Info) Description 04/22/2025 Refill [facility] [address] [facility] [address] [place] [phone] Glenn Baker DO [address] [facility] [address] [place] [address] Metabolic syndrome Social History Tobacco [...] How often do you attend [facility] or quaker services? 1 to 4 times per year 08/02/2023 Do you belong to any clubs o r organizations such as hindu groups, unions, fraternal or athletic groups, or [...] Recorded Patient Health Questionnaire-2 Score 0 08/02/2023 [facility] ional Health - Occupational [...] Telephone Encounter - Alivia Luu MA - 04/22/2025 4:22 PM EDT duplicate documented in this encounter Plan of Treatment Upcoming Encounters Date Type Department Care Team (Late st Contact Info) Description 10/27/2025 3:30 PM EST Office Visit [facility] [address] [phone] Shayy Katz PA [address] [place] [address] 02/12/2026 9:20 AM EDT Office Visit [facility] [address] [place] [address] Glenn Baker DO [address] [place] [address] documented as of this encounter Visit Diagnoses Diagnosis Metabolic syndrome Dysmetabolic Syndrome X documented in this encounter Care Teams Audio/Visual Operator Relationship Specialty Start Date End Date Glenn Baker DO [address] [facility] 230 [place] [address] PCP - Medical [place] [employer] 11/20/22 06/12/25 Glenn Baker DO [address] [facility] [address] [place] [address] PCP - General Family Medicine 10/07/24 documented as of this encounter
--- OUTSIDE RECORDS SUMMARY | 2025-09-01 21:22 | XMS_ITS | Encounter Summary ---
Author Organization [facility] Address [address] [place] [address] Care Team Providers Care International Travel Consultant Name Role Phone Glenn Baker DO Unavailable [phone] Shaikh ILIA Dickens Primary Care Provider [phone] Glenn Baker DO Primary Care Provider [phone] Encounter Details Date Type Department Care Team (Late st Contact Info) Description 08/02/2024 Abstract [facility] [address] [place] [phone] Shayy Katz PA [address] [facility] [address] [place], [place] [phone] Social History Tobacco Use Types Packs/Day Years [...] How often do you attend chur or mandaen services? 1 to 4 times per year 08/02/2023 Do you belong to any clubs o r organizations such as sabianism groups, unions, fraternal or athletic groups, or [...] Recorded Patient Health Questionnaire-2 Score 0 08/02/2023 [facility] of Occupat ional Health - Occupational Stress [...] place to sleep or slept in a custodial (including now)? No 08/02/2023 Comments No Sex [...] Office Visit [facility] [address] [place] [phone] Shayy Katz PA [address] [facility] [address] [facility] [address] [place], [place] [phone] 02/12/2026 9:20 AM EDT Office Visit [facility] [address] [place] [phone] Glenn Baker, DO [address] [place] [address] documented as of this encounter Visit Diagnoses Not on filedocumented in this encounter Care Teams International Travel Consultant Relationship Specialty Start Date End Date Glenn Baker DO [address] [place] [address] PCP - Medical [place] [employer] 11/20/22 06/12/25 Shaikh Dickens MD [address] [place] [address] PCP - General Internal Medicine 07/18/24 08/20/24 Glenn Baker DO [address] [facility] [address] [place] [address] PCP - General Family Medicine 10/07/24 documented as of this encounter
--- OUTSIDE RECORDS SUMMARY | 2025-09-01 21:22 | XMS_ITS | Encounter Summary ---
Author Organization [facility] Address [address] [place] [address] Care Team Providers Care Clinical Team Manager Name Role Phone Glenn Baker DO Unavailable [phone] RochesterGlenn whitten DO Primary Care Provider [phone] Reason for Visit * Reason Comments Med Refill Encounter Details Date Type Department Care Team (Late st Contact Info) Description 01/17/2025 Refill [facility] [address] [place] [phone] Vj Gómez DO [address] [facility] [address] Neisha [place], [facility] Yeast infection Social History Tobacco Use Types Packs/Day Years [...] week 08/02/2023 How often do you attend [facility] or faith services? 1 to 4 times per year [...] Recorded Patient Health Questionnaire-2 Score 0 08/02/2023 [facility] of Occupat ional Health - Occupational [...] place to sleep or slept in a fpc (including now)? No 08/02/2023 Comments No Sex [...] PM EST Office Visit [facility] ACE[facility] [address] [place] [address] Shayy Katz PA [address] [facility] [place] [address] 02/12/2026 9:20 AM EDT Office Visit [facility] [address] [place] [phone] Glenn Baker, DO [address] [place] [address] documented as of this encounter Visit Diagnoses Diagnosis Yeast infection documented in this encounter Care Teams Clinical Team Manager Relationship Specialty Start Date End Date Glenn Baker DO [address] [facility] 230 [place] [address] PCP - Medical [place] [employer] 11/20/22 06/12/25 Glenn Baker DO [address] [facility] 230 [place] [address] PCP - General Family Medicine 10/07/24 documented as of this encounter
--- OUTSIDE RECORDS SUMMARY | 2025-09-01 21:22 | XMS_ITS | Encounter Summary ---
Author Organization [facility] Address [address] [place] [address] Care Team Providers Care Research Programmer Name Role Phone Shaikh ILIA Dickens Primary Care Provider [phone] Glenn Baker DO Unavailable [phone] Shaikh ILIA Dickens Primary Care Provider [phone] Glenn Baker DO Primary Care Provider Encounter Details Date Type Department Care Team (Late st Contact Info) Description 04/19/2023 Abstract [facility] [address] [place] [address] Vj Gómez DO [address] [place], [place] [id number] Social History Tobacco Use Types Packs/Day Years Used Date Smoking Tobacco: Every Day Cigarettes Tobacco Cessation:Ready to Q uit: Not Asked; Counseling Given: Not Answered Comments:21-30 cigs a day Alcohol Use Standard Drinks/Week Comments Yes 0 (1 standard drink = 0.6 oz pure alcohol) Caffeine intake: 1-2 cups per day Comments Unknown Sex and Gender Information Value Date Recorded [...] PM EST Office Visit [facility] [address] [place] [address] Shayy Katz PA [address] [place] [address] 02/12/2026 9:20 AM EDT Office Visit [facility] [address] [place] [address] Glenn Baker DO [address] [place] [address] documented as of this encounter Visit Diagnoses Not on filedocumented in this encounter Care Teams Research Programmer Relationship Specialty Start Date End Date Shaikh Dickens MD PCP - General Internal Medicine 05/31/23 07/17/24 Glenn Baker DO [address] [place] [address] PCP - Medical [place] [employer] 11/20/22 06/12/25 Shaikh Dickens MD [address] [place] [address] PCP - General Internal Medicine 07/18/24 08/20/24 Glenn Baker DO [address] [place] [address] PCP - General Family Medicine 10/07/24 documented as of this encounter
--- OUTSIDE RECORDS SUMMARY | 2025-09-01 21:23 | XMS_ITS | CCD ---
Author Organization [facility] Care Team Providers Care Coordinator Of Genetic Services Name Role Phone BISI, DR SAHU Admitting Unavailable BISI, DR SAHU Attending Unavailable WIDD, [facility] Primary Care Unavailable BISI, DR SAHU Consulting Unavailable ZIEBER, DR BALJIT Gibbons Consulting Unavailable INOCENTE, AHMAD Admitting Unavailable INOCENTE, AHMAD Attending Unavailable FAWWAD, [facility] Primary Care Unavailable INOCENTE, AHMAD Consulting Unavailable BISI, DR SAHU Admitting Unavailable BISI, DR SAHU Attending Unavailable FAWIDD, [facility] Primary Care Unavailable BISI, DR SAHU Consulting Unavailable BISI, DR SAHU Admitting Unavailable BISI, DR SAHU Attending Unavailable REQUEST, DR NONE LISTED Primary Care Unavaila ble CARLA, DR YUSEF Magallanes Consulting Unavailable BISI, DR SAHU Consulting Unavailable BISI, DR SAHU Admitting Unavailable BISI, DR SAHU Attending Unavailable REQUEST, DR NONE LISTED Primary Care Unavaila ble BISI, DR SAHU Consulting Unavailable BISI, DR SAHU Admitting Unavailable BISI, DR SAHU Attending Unavailable FAWIDMadeline, [facility] Primary Care Unavailable CARLA, DR YUSEF Magallanes Consulting Unavailable BISI, DR SAHU Consulting Unavailable AVANI, DR RUANO Admitting Unavailable AVANI, DR RUANO Attending Unavailable CAMELIAIDMadeline, [facility] Primary Care Unavailable AVANI, DR RUANO Consulting Unavailable CAMELIAIDMadeline, [facility] Primary Care Unavailable BISI, DR SAHU Admitting Unavailable BISI, DR SAHU Attending Unavailable CARLA, DR YUSEF Magallanes Consulting Unavailable BISI, DR SAHU Consulting Unavailable [facility] Unavailable Glenn Baker DO Unavailable [phone] Shaikh Dickens MD Primary Care Provider Glenn Baker DO Primary Care Provider GLENN BAKER Attending Unavailable CUTLER, GLENN Sutherland Attending Unavailable CUTLER, GLENN Sutherland Referring Unavailable CUTLER, GLENN Sutherland Referring Unavailable CUTLER, GLENN Sutherland Referring Unavailable Allergies Allergy Classification Reported Allergen(s) Allergy Type Date of Onset Reaction(s) Facility (1 source) NSAIDs Drug allergy (disorder) [facility] (1 source) Sulfamethoxazole / Trimethoprim Drug Allergy [facility] (2 sources) Sulfamethoxazole / Trimethoprim Drug Allergy white patches in mouth [facility] Other (16 sources) Latex Propensity to adverse reactions 05-30-20 23 [facility] Work Phone: (17 sources) Sulfamethoxazole Propensity to adverse reactions 08-02-20 23 Dermatitis, Diarrhea, Hives, Itching, Rash [facility] (1 source) Trimethoprim Drug Allergy 04-19-20 25 white patches in mouth [facility] (1 source) NSAIDS (Non-Steroidal Anti-Inflamma Allergy to substance 04-19-20 25 pt has ulcers [facility] (3 sources) Non-steroidal anti-inflammatory agent Propensity to adverse reactions 08-13-20 25 [facility] Medications Current Medications Medication Drug Class(es) Dates Sig (Normalized) Sig (Original) 0.5 ML tirzepatide 15 MG/ML Auto-Injector [Mounjaro] (1 source) Mounjaro 7.5 MG/0.5ML Subcutaneous for 28 Days Active [id number] actuat albuterol 0.09 mg/actuat metered dose inhaler (16 sources) beta2-Adrenergic Agonist Start: 12-11-2024 take 2 puff(s) by mouth every four hours as needed for wheezing albuterol HFA 90 mcg/act inhaler Indications: Shortness of breath INHALE 2 PUFFS BY MOUTH EVERY 4 HOURS NEEDED FOR WHEEZING 18 g 11 12/11/2024 Active Start: 11-29-2023 End: 11-28-2024 take 2 puff(s) by inhalation every four hours for wheezing albuterol HFA 90 mcg/act inhaler Indications: Shortness of breath Inhale 2 puffs every 4 (four) hours if needed for wheezing 18 g 11 11/29/2023 11/28/2024 Active amoxicillin 875 mg oral tablet (3 sources) Penicillin-class Antibacterial Start: 04-19-2025 take 1 tablet by mouth twice daily Amoxicillin 875 mg tablet Active 875 MG PO Twice daily 14 April 19, 2025 12:00am Start: 03-28-2023 take 1 capsule by [facility] every eight hours Amoxicillin 500 MG 1 capsule Orally tid for 10 day(s) March, Not-Taking/PRN amoxicillin 875 mg / clavulanate 125 mg oral tablet (2 sources) Penicillin-class Antibacterial Start: 03-31-2023 take 1 tablet by mouth every twelve hours Amoxicillin-Pot Clavulanate 875-125 MG 1 tablet Orally every 12 hrs for 10 day(s) Oct, Active buPROPion hydrochloride 75 mg oral tablet (9 sources) Aminoketone Start: 10-08-2024 End: 10-08-2025 take 2 tablets by mouth in the morning buPROPion (Wellbutrin) 75 MG tablet Indications: Overweight Take 2 tablets (150 mg) by mouth in the morning and 2 tablets (150 mg) before bedtime. 120 tablet 11 10/08/2024 08/15/2025 Discontinued chlorhexidine gluconate 1.2 mg/ml mouthwash (15 sources) Start: 07-17-2024 chlorhexidine (Peridex) 0.12 % solution Rinse 15 mL twice daily after breakfast and before bedtime NEEDED FOR 30 DAYS 07/17/2024 Active Chlorhexidine Gluconate (Peridex) 0.12 % mouthwash (1 source) Start: 04-19-2025 Chlorhexidine Gluconate (Peridex) 0.12 % mouthwash Active 15 ML BUCCAL Twice daily 210 April 19, 2025 12:00am cholecalciferol 0.025 mg oral capsule (16 sources) Vitamin D cholecalciferol (Vitamin D-3) 25 MCG (1000 UT) capsule Vitamin D3 Active escitalopram 20 mg oral tablet (20 sources) Serotonin Reuptake Inhibitor Start: 08-15-2025 take 1 tablet by mouth in the morning escitalopram (Lexapro) 20 MG tablet Indications: Anxiety and depression Take 1 tablet (20 mg) by mouth in the morning. 30 tablet 11 08/15/2025 Active Start: 08-15-2025 take 1 tablet by vito th in the morning escitalopram (Lexapro) 20 MG tablet Indications: Anxiety and depression Take 1 tablet (20 mg) by mouth in the morning. 30 tablet 11 08/15/2025 Active Start: 04-12-2024 End: 08-15-2025 take 1 tablet by mouth in the morning escitalopram (Lexapro) 20 MG tablet Indications: Anxiety and depression Take 1 tablet (20 mg) by mouth in the morning. 30 tablet 11 08/21/2024 08/15/2025 Discontinued (Reorder) Escitalopram Oxa late 20 MG Oral for 30 Days Active famotidine 20 mg oral tablet (20 sources) Histamine-2 Receptor Antagonist Start: 08-15-2025 take 1 tablet by mouth once daily famotidine (Pepcid) 20 MG tablet Indications: Chronic peptic ulcer, site unspecified, without hemorrhage or perforation Take 1 tablet (20 mg) by mouth Daily 30 tablet 3 08/15/2025 Active Start: 08-15-2025 take 1 tablet by vito th once daily famotidine (Pepcid) 20 MG tablet Indications: Chronic peptic ulcer, site unspecified, without hemorrhage or perforation Take 1 tablet (20 mg) by mouth Daily 30 tablet 3 08/15/2025 Active Start: 03-18-2025 End: 08-15-2025 take 1 tablet by mouth once daily famotidine (Pepcid) 20 MG tablet Indications: Chronic peptic ulcer, site unspecified, without hemorrhage or perforation TAKE 1 TABLET BY MOUTH DAILY 30 tablet 3 03/18/2025 08/15/2025 Discontinued (Reorder) Start: 07-15-2024 End: 08-21-2024 take 1 tablet by mouth once daily famotidine (Pepcid) 20 MG tablet Indications: Chronic peptic ulcer, site unspecified, without hemorrhage or perforation Take 1 tablet (20 mg) by mouth Daily 30 tablet 3 08/21/2024 Active fluticasone propionate 0.05 mg/actuat metered dose nasal spray (20 sources) Corticosteroid Start: 08-15-2025 take 2 spray(s) nasal route in the morning fluticasone (Flonase) 50 MCG/ACT nasal spray Indications: Allergic rhinitis, unspecified seasonality, unspecified trigger Administer 2 sprays into each nostril in the morning and 2 sprays before bedtime. Shake gently. Before first use, prime pump. After use, clean tip and replace cap. 32 g 11 08/15/2025 Active Start: 08-15-2025 take 2 spray(s) nasa l route in the morning fluticasone (Flonase) 50 MCG/ACT nasal spray Indications: Allergic rhinitis, unspecified seasonality, unspecified trigger Administer 2 sprays into each nostril in the morning and 2 sprays before bedtime. Shake gently. Before first use, prime pump. After use, clean tip and replace cap. 32 g 11 08/15/2025 Active Start: 04-19-2025 Fluticasone Pr opionate 50 mcg/actuation spray,suspension Active INTRANASAL April 19, 2025 12:00am Start: 11-29-2023 End: 08-15-2025 take 2 spray(s) nasal route in the morning fluticasone (Flonase) 50 MCG/ACT nasal spray Indications: Allergic rhinitis, unspecified seasonality, unspecified trigger Administer 2 sprays into each nostril in the morning and 2 sprays before bedtime. Shake gently. Before first use, prime pump. After use, clean tip and replace cap.. 32 g 11 08/21/2024 08/15/2025 Discontinued (Reorder) Start: 11-01-2023 take 2 spray(s) nasa l route once daily Fluticasone Propionate 50 MCG/ACT 2 sprays Nasally Once a day for 14 day(s) Oct, Active 1 ml ketorolac tromethamine 30 mg/ml cartridge (10 sources) Nonsteroidal Anti-inflammatory Drug, Cyclooxygenase Inhibitor Start: 08-15-2025 End: 08-15-2025 ketorolac (Toradol) injection 30 mg Start: 08-15-2025 End: 08-15-2025 inject 30 mg by intramuscular injection once 30 mg, Intramuscular, Once, On Mon08/15/25 at 1000, For 1 dose Start: 08-15-2025 End: 08-15-2025 ketorolac (Toradol) injectio n 30 mg Start: 08-15-2025 End: 08-15-2025 inject 30 mg by intramuscular injection once 30 mg, Intramuscular, Once, On Mon08/15/25 at 1000, For 1 dose Start: 08-21-2024 End: 08-26-2024 ketorolac (Toradol) injectio n 30 mg levocetirizine dihydrochloride 5 mg oral tablet (20 sources) Histamine-1 Receptor Antagonist Start: 08-15-2025 take 1 tablet by mouth once daily levocetirizine (Xyzal) 5 MG tablet Indications: Allergic rhinitis, unspecified seasonality, unspecified trigger Take 1 tablet (5 mg) by mouth Daily 90 tablet 3 08/15/2025 Active Start: 08-15-2025 take 1 tablet by vito th once daily levocetirizine (Xyzal) 5 MG tablet Indications: Allergic rhinitis, unspecified seasonality, unspecified trigger Take 1 tablet (5 mg) by mouth Daily 90 tablet 3 08/15/2025 Active Start: 11-29-2023 End: 08-15-2025 take 1 tablet by mouth once daily levocetirizine (Xyzal) 5 MG tablet Indications: Allergic rhinitis, unspecified seasonality, unspecified trigger Take 1 tablet (5 mg) by mouth Daily 90 tablet 3 08/21/2024 08/15/2025 Discontinued (Reorder) levothyroxine sodium 0.05 mg oral tablet (20 sources) l-Thyroxine Start: 08-15-2025 take 1 tablet by mouth before mealtime levothyroxine (Synthroid, Levoxyl) 50 MCG tablet Indications: Postoperative hypothyroidism Take 1 tablet (50 mcg) by mouth in the morning. Take before meals. 90 tablet 3 08/15/2025 Active Start: 08-15-2025 take 1 tablet by vito th before mealtime levothyroxine (Synthroid, Levoxyl) 50 MCG tablet Indications: Postoperative hypothyroidism Take 1 tablet (50 mcg) by mouth in the morning. Take before meals. 90 tablet 3 08/15/2025 Active Start: 04-19-2025 Levothyroxine 50 mcg tablet Active 50 MCG PO April 19, 2025 12:00am Start: 05-22-2024 End: 08-15-2025 take 1 tablet by mouth before mealtime levothyroxine (Synthroid, Levoxyl) 50 MCG tablet Indications: Postoperative hypothyroidism Take 1 tablet (50 mcg) by mouth in the morning. Take before meals. 90 tablet 3 08/21/2024 08/15/2025 Discontinued (Reorder) take 1 tablet by vito th in the morning Levothyroxine Sodium 50 MCG TAKE 1 TABLET BY MOUTH IN THE MORNING ON AN EMPTY STOMACH Oral for 30 Days Active take 1 tablet by vito th in the morning Levothyroxine Sodium 50 MCG TAKE 1 TABLET BY MOUTH IN THE MORNING ON AN EMPTY STOMACH Oral for 30 Days Active liothyronine sodium 0.005 mg oral tablet (20 sources) l-Triiodothyronine Start: 08-15-2025 take 1 tablet by mouth once daily liothyronine (Cytomel) 5 MCG tablet Indications: Postoperative hypothyroidism Take 1 tablet (5 mcg) by mouth Daily 30 tablet 08/15/2025 Active Start: 08-15-2025 take 1 tablet by vito th once daily liothyronine (Cytomel) 5 MCG tablet Indications: Postoperative hypothyroidism Take 1 tablet (5 mcg) by mouth Daily 30 tablet 08/15/2025 Active Start: 06-28-2023 End: 08-15-2025 take 1 tablet by mouth once daily liothyronine (Cytomel) 5 MCG tablet Indications: Postoperative hypothyroidism Take 1 tablet (5 mcg) by mouth Daily 30 tablet 08/05/2025 08/15/2025 Discontinued (Reorder) take 1 tablet by vito th once daily Liothyronine Sodium 5 MCG TAKE 1 TABLET BY MOUTH DAILY Oral for 30 Days Active Mounjaro 7.5 MG/0.5ML solution auto-injector (5 sources) Start: 04-24-2025 End: 08-15-2025 inject 7.5 mg by subcutaneous injection every week Mounjaro 7.5 MG/0.5ML solution auto-injector Indications: Metabolic syndrome INJECT 7.5mg SUBCUTANEOUSLY (UNDER THE SKIN) ONCE A WEEK 2 mL 04/24/2025 08/15/2025 Discontinued (Reorder) Start: 04-24-2025 inject 7.5 mg by sub cutaneous injection every week Mounjaro 7.5 MG/0.5ML solution auto-injector Indications: Metabolic syndrome INJECT 7.5mg SUBCUTANEOUSLY (UNDER THE SKIN) ONCE A WEEK 2 mL 04/24/2025 Active mounjaro 7.5 mg/0.5ml solution pen-injector (1 source) Mounjaro 7.5 MG/ 0.5ML Subcutaneous for 28 Days Active naltrexone hydrochloride 50 mg oral tablet (9 sources) Opioid Antagonist Start: 10-08-20 End: 10-08-20 take 1 tablet by mouth once daily naltrexone (Depade) 50 MG tablet Indications: Overweight Take 1 tablet (50 mg) by mouth Daily 30 tablet 11 10/08/2024 08/15/2025 Discontinued pantoprazole 40 mg delayed release oral tablet (20 sources) Proton Pump Inhibitor Start: 08-15-20 take 1 tablet by mouth before mealtime pantoprazole (Protonix) 40 MG EC tablet Indications: Gastroesophageal reflux disease without esophagitis Take 1 tablet (40 mg) by mouth in the morning. Take before meals. 90 tablet 3 08/15/2025 Active Start: 08-15-2025 take 1 tablet by vito th before mealtime pantoprazole (Protonix) 40 MG EC tablet Indications: Gastroesophageal reflux disease without esophagitis Take 1 tablet (40 mg) by mouth in the morning. Take before meals. 90 tablet 3 08/15/2025 Active Start: 08-21-2024 End: 08-15-2025 take 1 tablet by mouth before mealtime pantoprazole (Protonix) 40 MG EC tablet Indications: Gastroesophageal reflux disease without esophagitis Take 1 tablet (40 mg) by mouth in the morning. Take before meals. 90 tablet 3 08/21/2024 08/15/2025 Discontinued (Reorder) Pantoprazole 40 mg tablet,delayed release (DR/EC) (1 source) Start: 04-19-2025 Pantoprazole 40 mg tablet,delayed release (DR/EC) Active MG PO April 19, 2025 12:00am sucralfate 1000 mg oral tablet (20 sources) Aluminum Complex Start: 08-15-2025 take 1 tablet by mouth every six hours sucralfate (Carafate) 1 g tablet Indications: Gastroesophageal reflux disease without esophagitis Take 1 tablet (1 g) by mouth every 6 (six) hours if needed (reflux) 120 tablet 3 08/15/2025 Active Start: 08-15-2025 take 1 tablet by vito th every six hours sucralfate (Carafate) 1 g tablet Indications: Gastroesophageal reflux disease without esophagitis Take 1 tablet (1 g) by mouth every 6 (six) hours if needed (reflux) 120 tablet 3 08/15/2025 Active Start: 04-19-2025 Sucralfate 1 g petros tablet Active PO as needed April 19, 2025 12:00am Start: 04-17-2025 End: 08-15-2025 take 1 tablet by mouth four times daily as needed sucralfate (Carafate) 1 g tablet Indications: Gastroesophageal reflux disease without esophagitis TAKE 1 TABLET BY MOUTH FOUR TIMES DAILY NEEDED 120 tablet 3 04/17/2025 08/15/2025 Discontinued (Reorder) Start: 07-15-2024 End: 12-19-2024 take 1 tablet by mouth four times daily as needed for gastroesophageal reflux disease sucralfate (Carafate) 1 g tablet Indications: Gastroesophageal reflux disease without esophagitis Take 1 tablet (1 g) by mouth 4 (four) times a day as needed (reflux symptoms) 120 tablet 3 08/21/2024 12/19/2024 Active Sucralfate 1 GM Oral for 30 Days Active Sucralfate 1 GM Oral for 30 Days Active Tirzepatide (1 source) Start: 04-19-2025 Tirzepatide 2. 5 mg/0.5 mL pen injector Active 2.5 MG SUBCUT every week April 19, 2025 12:00am for 4 weeks Tirzepatide (Mounjaro) 7.5 MG/0.5ML solution auto-injector (14 sources) Start: 08-15-2025 inject 7.5 mg by subcutaneous injection every week Tirzepatide (Mounjaro) 7.5 MG/0.5ML solution auto-injector Indications: Metabolic syndrome Inject 7.5 mg under the skin 1 (one) time per week 2 mL 11 08/15/2025 Active Start: 04-23-2025 End: 04-24-2025 inject 7.5 mg by subcutaneous injection every week Tirzepatide (Mounjaro) 7.5 MG/0.5ML solution auto-injector Indications: Metabolic syndrome Inject 7.5 mg under the skin 1 (one) time per week 2 mL 04/23/2025 04/24/2025 Discontinued Start: 04-22-2025 inject 7.5 mg by sub cutaneous injection every week Tirzepatide (Mounjaro) 7.5 MG/0.5ML solution auto-injector Indications: Metabolic syndrome Inject 7.5 mg under the skin 1 (one) time per week 2 mL 11 04/22/2025 Active Start: 08-21-2024 End: 04-22-2025 inject 7.5 mg by subcutaneous injection every week Tirzepatide (Mounjaro) 7.5 MG/0.5ML solution auto-injector Indications: Metabolic syndrome Inject 7.5 mg under the skin 1 (one) time per week 2 mL 08/21/2024 04/22/2025 Discontinued (Reorder) Start: 08-21-2024 inject 7.5 mg by sub cutaneous injection every week Tirzepatide (Mounjaro) 7.5 MG/0.5ML solution auto-injector Indications: Metabolic syndrome Inject 7.5 mg under the skin 1 (one) time per week 2 mL 08/21/2024 Active Completed/Discontinued Medications Medication Drug Class(es) Dates Sig (Normalized) Sig (Original) Tirzepatide (Mounjaro) 7.5 MG/0.5ML solution pen-injector (3 sources) Start: 11-29-2023 End: 08-21-2024 inject 7.5 mg by subcutaneous injection every week Tirzepatide (Mounjaro) 7.5 MG/0.5ML solution pen-injector Indications: Metabolic syndrome Inject 7.5 mg under the skin 1 (one) time per week 2 mL 11/29/2023 08/21/2024 Discontinued (Reorder) Start: 11-29-2023 inject 7.5 mg by sub cutaneous injection every week Tirzepatide (Mounjaro) 7.5 MG/0.5ML solution pen-injector Indications: Metabolic syndrome Inject 7.5 mg under the skin 1 (one) time per week 2 mL 11/29/2023 Active Problems Active Problems Problem Classification Problem Date Documented Date Episodic/Chronic Anxiety disorders (5 sources) Mixed anxiety and depressive disorder; Translations: [Anxiety disorder, unspecified] 08-21-2024 Chronic Complications of surgical procedures or medical care (20 sources) Postprocedural hypothyroidism; Translations: [Asymptomatic postprocedural ovarian failure] Onset: 12-11-2021 Chronic Esophageal disorders (5 sources) Gastroesophageal reflux disease without esophagitis; Translations: [Gastro-esophageal reflux disease without esophagitis] 08-21-2024 Chronic Gastroduodenal ulcer (except hemorrhage) (7 sources) Peptic ulcer; Translations: [Peptic ulcer, site unspecified, unspecified as acute or chronic, without hemorrhage or perforation] 08-21-2024 Chronic Joint disorders and dislocations; trauma-related (16 sources) Derangement of left knee; Translations: [Unspecified internal derangement of left knee] Onset: 08-01-2023 08-01-2023 Chronic Nonmalignant breast conditions (2 sources) Lump in upper outer quadrant of left breast; Translations: [Unspecified lump in the left breast, upper outer quadrant] 10-08-2024 Episodic Osteoarthritis (3 sources) Osteoarthritis of knee; Translations: [Osteoarthritis of knee, unspecified] Onset: 08-13-2025 08-13-2025 Chronic Other bone disease and musculoskeletal deformities (3 sources) Chondromalacia; Translations: [Chondromalacia, unspecified site] Onset: 08-13-2025 08-13-2025 Episodic Other bone disease and musculoskeletal deformities (3 sources) Chondromalacia of left knee; Translations: [Chondromalacia, left knee] Onset: 08-13-2025 08-13-2025 Episodic Other non-traumatic joint disorders (4 sources) Hip pain; Translations: [Pain in right hip] 10-14-2024 Episodic Other nutritional; endocrine; and metabolic disorders (20 sources) Insulin resistance; Translations: [Insulin resistance] Onset: 08-01-2023 08-01-2023 Chronic Other nutritional; endocrine; and metabolic disorders (10 sources) Metabolic syndrome X; Translations: [Metabolic syndrome] 08-21-2024 Chronic Other nutritional; endocrine; and metabolic disorders (2 sources) Overweight; Translations: [Overweight] 10-08-2024 Episodic Other screening for suspected conditions (not mental disorders or infectious disease) (20 sources) Other abnormal and inconclusive findings on diagnostic imaging of breast; Translations: [Encounter for screening for malignant neoplasm of cervix] Onset: 10-29-2021 Episodic Other upper respiratory disease (20 sources) Allergic rhinitis; Translations: [Allergic rhinitis, unspecified] Onset: 08-01-2023 08-01-2023 Chronic Otitis media and related conditions (2 sources) Otitis media, unspecified, right ear; Translations: [Unspecified nonsuppurative otitis media, right ear] Episodic Substance-related disorders (16 sources) Smoker; Translations: [Nicotine dependence, unspecified, uncomplicated] Onset: 08-01-2023 08-01-2023 Chronic Thyroid disorders (20 sources) Nontoxic multinodular goiter; Translations: [Hypothyroidism] Onset: 08-29-2013 Chronic Thyroid disorders (1 source) Disorder of thyroid gland; Translations: [Disorder of thyroid, unspecified] 04-19-2025 Episodic Past or Other Problems Problem Classification Problem Date Documented Date Episodic/Chronic Abdominal pain (4 sources) Unspecified abdominal pain; Translations: [UNSPECIFIED ABDOMINAL PAIN] Onset: 12-30-2021 Episodic Cardiac dysrhythmias (20 sources) Palpitations; Translations: [Palpitations] Onset: 08-29-2013 08-01-2023 Episodic Immunizations and screening for infectious disease (1 source) Encounter for screening for human papillomavirus (HPV); Translations: [ENC SCREENING HUMAN PAPILLOMAVIRUS] Onset: 04-14-2022 Episodic Other diseases of veins and lymphatics (17 sources) Peripheral venous insufficiency; Translations: [Venous insufficiency (chronic) (peripheral)] Onset: 08-21-2024 08-21-2024 Episodic Residual codes; unclassified (1 source) Family history of malignant neoplasm of trachea, bronchus and lung; Translations: [FAM HX MALIG NEOPLSM TRACH BRON LNG] Onset: 11-21-2021 Episodic Results Test Name Value Interpretation Reference Range Facility CBC (INCLUDES DIFF/PLT)on Basophils (Bld) [#/Vol] 0.069 10*3/uL Normal 0-200 [facility] Comment on above: Performed By: #### 5 [id number], 496, 7600, [id number], [id number] #### [facility] [address] [place] [address], [address] [place] [id number] Valve Technician: Clifford Shelley MD Basophils/100 WBC (Bld) 1.3 % Normal [facility] Comment on above: Performed By: #### 5 8984, 496, 7600, [id number], [id number] #### [facility] [address] [place], [place] [id number] , [address] [place] [id number] Valve Technician: Clifford Shelley MD Eosinophils (Bld) [#/Vol] 0.122 10*3/uL Normal 15-500 [facility] Comment on above: Performed By: #### 5 [id number], 496, 7600, [id number], [id number] #### [facility] of [address], [address] [place] [address] Valve Technician: Clifford Shelley MD Eosinophils/100 WBC (Bld) 2.3 % Normal [facility] Comment on above: Performed By: #### 5 8984, 496, 7600, [id number], [id number] #### [facility] of [address], [address] [place] [address] Valve Technician: Clifford Shelley MD Erythrocyte distribution width (RBC) [Ratio] 13.3 % Normal 11.0-15.0 [facility] Comment on above: Performed By: #### 5 [id number], 496, 7600, [id number], [id number] #### [facility] of [address], [address] [place] [address] Valve Technician: Clifford Shelley MD Hematocrit (Bld) [Volume fraction] 41.4 % Normal 35.0-45.0 [facility] Comment on above: Performed By: #### 5 8984, 496, 7600, 08736, 6399 #### [facility] of [place] [address] Valve Technician: Clifford Shelley MD Hemoglobin (Bld) [Mass/Vol] 13.8 g/dL Normal 11.7-15.5 [facility] Comment on above: Performed By: #### 5 8984, 496, 7600, [id number], [id number] #### [facility] of [address], [address] [place] [address] Valve Technician: Clifford Shelley MD Lymphocytes (Bld) [#/Vol] 1.203 10*3/uL Normal 850-3900 [facility] Comment on above: Performed By: #### 5 [id number], 496, 7600, 87980, 6399 #### [facility] of [address], [address] [place], [place] [address] Valve Technician: Clifford Shelley MD Lymphocytes/100 WBC (Bld) 22.7 % Normal [facility] Comment on above: Performed By: #### 5 8984, 496, 7600, 82593, 6399 #### [facility] of [address], [address] [place] [address] Valve Technician: Clifford Shelley MD MCH (RBC) [Entitic mass] 31.2 pg Normal 27.0-33.0 [facility] Comment on above: Performed By: #### 5 8984, 496, 7600, 63235, 6399 #### [facility] of [place] [address] Valve Technician: Clifford Shelley MD MCHC (RBC) [Mass/Vol] 33.3 g/dL Normal 32.0-36.[address] [facility] Comment on above: Result Comment: For adults, a slight decrease in the calculated MCHC value (in the range of 30 to 32 g/dL) is most likely not clinically significant; however, it should be interpreted with caution in correlation with other red cell parameters and the patient's clinical condition. Performed By: #### 5 8984, 496, 7600, 25187, 6399 #### [facility] [place] [address] Valve Technician: Clifford Shelley MD MCV (RBC) [Entitic vol] 93.5 fL Normal 80.0-100.0 [facility] Comment on above: Performed By: #### 5 8984, 496, 7600, 92852, 6399 #### [facility] [address], [address] [place] [address] Valve Technician: Clifford Shelley MD Monocytes (Bld) [#/Vol] 0.408 10*3/uL Normal 200-950 [facility] Comment on above: Performed By: #### 5 8984, 496, 7600, 44567, 6399 #### [facility] [place] [address] Valve Technician: Clifford Shelley MD Monocytes/100 WBC (Bld) 7.7 % Normal [facility] Comment on above: Performed By: #### 5 8984, 496, 7600, 94790, 6399 #### [facility] of [address], [address] [place] [address] Valve Technician: Clifford Shelley MD Neutrophils (Bld) [#/Vol] 3.498 10*3/uL Normal 6831-7491 [facility] Comment on above: Performed By: #### 5 8984, 496, 7600, 77053, 6399 #### [facility] of [address], [address] [place] [address] Valve Technician: Clifford Shelley MD Neutrophils/100 WBC (Bld) 66 % Normal [facility] Comment on above: Performed By: #### 5 8984, 496, 7600, 29467, 6399 #### [facility] of [address], [address] [place] [address] Valve Technician: Clifford Shelley MD Platelet mean volume (Bld) [Entitic vol] 9.8 fL Normal 7.5-12.5 [facility] Comment on above: Performed By: #### 5 8984, 496, 7600, 77616, 6399 #### [facility] of [place] [address] Valve Technician: Clifford Shelley MD Platelets (Bld) [#/Vol] 326 10*3/uL Normal 140-400 [facility] Comment on above: Performed By: #### 5 8984, 496, 7600, 34073, 6399 #### [facility] of [address], [address] [place] [address] Valve Technician: Clifford Shelley MD RBC (Bld) [#/Vol] 4.43 10*6/uL Normal 3.80-5.10 [facility] Comment on above: Performed By: #### 5 8984, 496, 7600, 23350, 6399 #### [facility] of [address], [address] [place] [address] Valve Technician: Clifford Shelley MD WBC (Bld) [#/Vol] 5.3 10*3/uL Normal 3.8-10.8 [facility] Comment on above: Performed By: #### 5 8984, 496, 7600, 43831, 6399 #### [facility] of [address], [address] [place] [address] Valve Technician: Clifford Shelley MD COMPREHENSIVE METABOLIC PANE [facility] 08-14-2025 Albumin [Mass/Vol] 4.2 g/dL Normal 3.6-5.1 [facility] Comment on above: Performed By: #### 5 8984, 496, 7600, 40014, 6399 #### [facility] of [address], [address] [place] [address] Valve Technician: Clifford Shelley MD Albumin/Globulin [Mass ratio] 1.6 {ratio} Normal 1.0-2.5 [facility] Comment on above: Performed By: #### 5 8984, 496, 7600, 84393, 6399 #### [facility] of [address], [address] [place] [address] Valve Technician: Clifford Shelley MD ALP [Catalytic activity/Vol] 43 U/L Normal 31-125 [facility] Comment on above: Performed By: #### 5 8984, 496, 7600, 36777, 6399 #### [facility] of [address], [address] [place] [address] Valve Technician: Clifford Shelley MD ALT [Catalytic activity/Vol] 12 U/L Normal 6-29 [facility] Comment on above: Performed By: #### 5 8984, 496, 7600, 07617, 6399 #### [facility] of [place] [address] Valve Technician: Clifford Shelley MD AST [Catalytic activity/Vol] 13 U/L Normal 10-35 [facility] Comment on above: Performed By: #### 5 8984, 496, 7600, 15387, 6399 #### [facility] of [address], [address] [place] [address] Valve Technician: Clifford Shelley MD Bilirubin [Mass/Vol] 0.4 mg/dL Normal 0.2-1.2 [facility] Comment on above: Performed By: #### 5 8984, 496, 7600, 82060, 6399 #### [facility] of [address], [address] [place] [address] Valve Technician: Clifford Shelley MD BUN/CREATININE RATIO SEE NOTE: Normal 6-22 [facility] Comment on above: Result Comment: Not Reported: BUN and Creatinine are within reference range. Performed By: #### 5 8984, 496, 7600, 38764, 6399 #### [facility] [address], [address] [place] [address] Valve Technician: Clifford Shelley MD Calcium [Mass/Vol] 9.9 mg/dL Normal 8.6-10.2 [facility] Comment on above: Performed By: #### 5 8984, 496, 7600, 11127, 6399 #### [facility] [place] [address] Valve Technician: Clifford Shelley MD Chloride [Moles/Vol] 104 mmol/L Normal 98-110 [facility] Comment on above: Performed By: #### 5 8984, 496, 7600, 48512, 6399 #### [facility] of [address], [address] [place] [address] Valve Technician: Clifford Shelley MD CO2 [Moles/Vol] 28 mmol/L Normal 20-32 [facility] Comment on above: Performed By: #### 5 8984, 496, 7600, 45793, 6399 #### [facility] of [address], [address] [place] [address] Valve Technician: Clifford Shelley MD Creatinine [Mass/Vol] 0.81 mg/dL Normal 0.50-0.[address] [facility] Comment on above: Performed By: #### 5 8984, 496, 7600, 05544, 6399 #### [facility] [address], [address] [place] [address] Valve Technician: Clifford Shelley MD GFR/1.73 sq M.predicted among non-blacks MDRD (S/P/Bld) [Vol rate/Area] 91 mL/min/{1.73_m2} Normal > OR = 60 [facility] Comment on above: Performed By: #### 5 8984, 496, 7600, 46803, 6399 #### [facility] [address], [address] [place] [address] Valve Technician: Clifford Shelley MD Globulin (S) [Mass/Vol] 2.6 g/dL Normal 1.9-3.7 [facility] Comment on above: Performed By: #### 5 8984, 496, 7600, 36604, 6399 #### [facility] [place] [address] Valve Technician: Clifford Shelley MD Glucose [Mass/Vol] 79 mg/dL Normal 65-99 [facility] Comment on above: Result Comment: Fasting reference interval Performed By: #### 5 8984, 496, 7600, 17416, 6399 #### [facility] [place] [address] Valve Technician: Clifford Shelley MD Potassium [Moles/Vol] 4.4 mmol/L Normal 3.5-5.[address] [facility] Comment on above: Performed By: #### 5 8984, 496, 7600, 73052, 6399 #### [facility] [place] [address] Valve Technician: Clifford Shelley MD Protein [Mass/Vol] 6.8 g/dL Normal 6.1-8.1 [facility] Comment on above: Performed By: #### 5 8984, 496, 7600, 23742, 6399 #### [facility] of [address], [address] [place] [address] Valve Technician: Clifford Shelley MD Sodium [Moles/Vol] 137 mmol/L Normal 135-146 [facility] Comment on above: Performed By: #### 5 8984, 496, 7600, 20849, 6399 #### [facility] [address], [address] [place] [address] Valve Technician: Clifford Shelley MD Urea nitrogen [Mass/Vol] 12 mg/dL Normal 7-25 [facility] Comment on above: Performed By: #### 5 8984, 496, 7600, 53231, 6399 #### [facility] [address], [address] [place] [address] Valve Technician: Clifford Shelley MD HEMOGLOBIN A1con 08-14-2025 HbA1c (Bld) [Mass fraction] 4.9 % Normal <5.7 [facility] Comment on above: Result Comment: For the purpose of screening for the presence of diabetes: <5.7% Consistent with the absence of diabetes 5.7-6.4% Consistent with increased risk for diabetes (prediabetes) > or =6.5% Consistent with diabetes This assay result is consistent with a decreased risk of diabetes. Currently, no consensus exists regarding use of hemoglobin A1c for diagnosis of diabetes in children. According to [place] [employer] (ADA) guidelines, hemoglobin A1c <7.0% represents optimal control in non- diabetic patients. Different metrics may apply to specific patient populations. Standards of Medical Care in Diabetes(ADA). Performed By: #### 5 8984, 496, 7600, 14842, 6399 #### [facility] [address], [address] [place] [address] Valve Technician: Clifford Shelley MD LIPID PANEL, STANDARDon 07-22 Cholesterol [Mass/Vol] 157 mg/dL Normal <200 [facility] Comment on above: Performed By: #### 5 8984, 496, 7600, 08623, 6399 #### [facility] [address], [address] [place] [address] Valve Technician: Clifford Shelley MD Cholesterol in HDL [Mass/Vol] 64 mg/dL Normal > OR = 50 [facility] Comment on above: Performed By: #### 5 8984, 496, 7600, 04548, 6399 #### [facility] [place] [address] Valve Technician: Clifford Shelley MD Cholesterol in LDL [Mass/Vol] 77 mg/dL Normal [facility] Comment on above: Result Comment: Refe rence range: <100 Desirable range <100 mg/dL for primary prevention; <70 mg/dL for patients with CHD or diabetic patients with > or = 2 CHD risk factors. LDL-C is now calculated using the Alyce calculation, which is a validated novel method providing better accuracy than the Friedewald equation in the estimation of LDL-C. Kevin SS et al. ROD. 2013;310(19): 5043-0264 (http://education.[employer]/faq/GLT848) Performed By: #### 5 8984, 496, 7600, 80234, 6399 #### [facility] [place] [address] Valve Technician: Clifford Shelley MD Cholesterol.total/Cho lesterol in HDL [Mass ratio] 2.5 {ratio} Normal <5.0 [facility] Comment on above: Performed By: #### 5 8984, 496, 7600, 32915, 6399 #### [facility] [place] [address] Valve Technician: Clifford Shelley MD NON HDL CHOLESTEROL 93 mg/dL (calc) Normal <130 [facility] Comment on above: Result Comment: For patients with diabetes plus 1 major ASCVD risk factor, treating to a non-HDL-C goal of <100 mg/dL (LDL-C of <70 mg/dL) is considered a therapeutic option. Performed By: #### 5 8984, 496, 7600, 33909, 6399 #### [facility] [place] [address] Valve Technician: Clifford Shelley MD Triglyceride [Mass/Vol] 84 mg/dL Normal <150 [facility] Comment on above: Performed By: #### 5 8984, 496, 7600, 92519, 6399 #### [facility] [address], [address] [place] [address] Valve Technician: Clifford Shelley MD T3, FREEon 08-14-2025 Free T3 [Mass/Vol] 3.2 pg/mL Normal 2.3-4.2 [facility] Comment on above: Performed By: #### 5 8984, 496, 7600, 73883, 6399 #### [facility] [place] [address] Valve Technician: Clifford Shelley MD TSH+FREE T4on 08-14-2025 Free T4 [Mass/Vol] 1.1 ng/dL Normal 0.8-1.8 [facility] Comment on above: Performed By: #### 5 8984, 496, 7600, 99484, 6399 #### [facility] [place] [address] Valve Technician: Clifford Shelley MD TSH Qn 0.17 m[IU]/L Low [facility] Comment on above: Result Comment: Refe rence Range > or = 20 Years 0.40-4.50 Ranges First trimester 0.26-2.66 Second trimester 0.55-2.73 Third trimester 0.43-2.91 Performed By: #### 5 8984, 496, 7600, 49552, 6399 #### [facility] [place] [address] Valve Technician: Clifford Shelley MD BI MAMMOGRAM DIAGNOSTIC DANA SYNTHESIS BILATERALon 10-28-2024 BI MAMMOGRAM DIAGNOSTIC TOMOSYNTHESIS BILATERAL This is a summary report. The complete report is available in the patient's medical record. If you cannot access the medical record, please contact the sending organization for a detailed fax or copy. EXAMINATION: BI MAMMOGRAM DIAGNOSTIC TOMOSYNTHESIS BILATERAL CLINICAL [...] Right axillary lymph nodes are also suggested. IMPRESSION: No specific evidence of malignancy seen in either breast. BIRADS 2 - Benign Findings DENSITY: The breasts are heterogeneously dense, which may obscure small masses. FOLLOW-UP: Routine Screening Mammogram Board Certified Radiologists. Accredited by the ACR and FDA. MAMMOGRAPHY IS VERY IMPORTANT TO YOUR HEALTH. THE [place] [employer] GUIDELINES RECOMMEND THAT WOMEN 40 YEARS OF AGE AND OLDER SHOULD HAVE A MAMMOGRAM EVERY YEAR. A REMINDER LETTER WILL BE SENT AT THE APPROPRIATE TIME. ELECTRONICALLY SIGNED BY: Javier Hand M.D. Normal Not Available BI US BREAST LIMITED LEFTon 10-28-2024 BI US BREAST LIMITED LEFT This is a summary report. The complete report is available in the patient's medical record. If you cannot access the medical record, please contact the sending organization for a detailed fax or copy. Examination: BI US BREAST LIMITED LEFT Reason for Study: L upper outer qudarant lump Comparison: Screening mammogram study dated 07/19/2023, diagnostic mammogram study of the breasts dated 10/28/2024. Technique: Left breast ultrasound study was performed in the area of clinically palpable near the left axillary region, left axillary region was also evaluated. Findings: There are 2 grossly unremarkable appearing left axillary lymph nodes measuring 1.6 x 1.2 x 0.6 cm and 2.1 x 1.0 x 0.5 cm. No obvious solid vascular mass to suggest neoplasm in the area of clinically palpable lump. IMPRESSION: Impression: Left breast ultrasound study is grossly unremarkable. No convincing evidence of neoplasm. BI-RADS 2 ELECTRONICALLY SIGNED BY: Javier Hand M.D. Normal Not Available DBT Breast - bilateral diagn osticon 10-28-2024 No specific evidence of malignancy seen in either breast. BIRADS 2 - Benign Findings DENSITY: The breasts are heterogeneously dense, which may obscure small masses. FOLLOW-UP: Routine Screening Mammogram Board Certified Radiologists. Accredited by the ACR and FDA. MAMMOGRAPHY IS VERY IMPORTANT TO YOUR HEALTH. THE [place] [employer] GUIDELINES RECOMMEND THAT WOMEN 40 YEARS OF AGE AND OLDER SHOULD HAVE A MAMMOGRAM EVERY YEAR. A REMINDER LETTER WILL BE SENT AT THE APPROPRIATE TIME. ELECTRONICALLY SIGNED BY: Javier Hand M.D. IMAGING EXAMINATION: BI MAMMOGRAM DIAGNOSTIC TOMOSYNTHESIS BILATERAL CLINICAL [...] Right axillary lymph nodes are also suggested. IMAGING Javier Hand MD - 10/28/2024 EXAMINATION: BI [...] Right axillary lymph nodes are also suggested. IMPRESSION: No specific evidence of malignancy seen in either breast. BIRADS 2 - Benign Findings DENSITY: The breasts are heterogeneously dense, which may obscure small masses. FOLLOW-UP: Routine Screening Mammogram Board Certified Radiologists. Accredited by the ACR and FDA. MAMMOGRAPHY IS VERY IMPORTANT TO YOUR HEALTH. THE [place] [employer] GUIDELINES RECOMMEND THAT WOMEN 40 YEARS OF AGE AND OLDER SHOULD HAVE A MAMMOGRAM EVERY YEAR. A REMINDER LETTER WILL BE SENT AT THE APPROPRIATE TIME. ELECTRONICALLY SIGNED BY: Javier Hand M.D. [facility] Radiology Study observation (narrative) [facility] DBT Breast - bilateral diagn osticOrdered By: Javier Hand on 10-28-2024 [facility] US Breast - left limitedon 1 12-29-2023 Impression: Left breast ultrasound study is grossly unremarkable. No convincing evidence of neoplasm. BI-RADS 2 ELECTRONICALLY SIGNED BY: Javier Hand M.D. IMAGING Examination: BI US BREAST LIMITED LEFT Reason for Study: L upper outer qudarant lump Comparison: Screening mammogram study dated 07/19/2023, diagnostic mammogram study of the breasts dated 10/28/2024. Technique: Left breast ultrasound study was performed in the area of clinically palpable near the left axillary region, left axillary region was also evaluated. Findings: There are 2 grossly unremarkable appearing left axillary lymph nodes measuring 1.6 x 1.2 x 0.6 cm and 2.1 x 1.0 x 0.5 cm. No obvious solid vascular mass to suggest neoplasm in the area of clinically palpable lump. IMAGING [facility] Radiology Study observation (narrative) [facility] HEMOGLOBIN A1con 09-19-2024 HEMOGLOBIN A1c 4.9 % of total Hgb Normal <5.7 [facility] Comment on above: Result Comment: For the purpose of screening for the presence of diabetes: <5.7% Consistent with the absence of diabetes 5.7-6.4% Consistent with increased risk for diabetes (prediabetes) > or =6.5% Consistent with diabetes This assay result is consistent with a decreased risk of diabetes. Currently, no consensus exists regarding use of hemoglobin A1c for diagnosis of diabetes in children. According to [place] [employer] (ADA) guidelines, hemoglobin A1c <7.0% represents optimal control in non- diabetic patients. Different metrics may apply to specific patient populations. Standards of Medical Care in Diabetes(ADA). Performed By: #### 4 96 #### [facility] [address], [address] [place] [address] Valve Technician: Clifford Shelley MD CBC W Auto Differential pane l (Bld)on 08-29-2024 Basophils (Bld) [#/Vol] 38 10*3/uL [facility] Basophils/100 WBC (Bld) 0.8 % [facility] Eosinophils (Bld) [#/Vol] 173 10*3/uL [facility] Eosinophils/100 WBC (Bld) 3.6 % [facility] Erythrocyte distribution width (RBC) [Ratio] 13.2 % 11.0 - 15.0 % [facility] Hematocrit (Bld) [Volume fraction] 40.7 % 35.0 - 45.0 % [facility] Hemoglobin (Bld) [Mass/Vol] 13.7 g/dL 11.7 - 15.5 g/dL [facility] Lymphocytes (Bld) [#/Vol] 1195 10*3/uL [facility] Lymphocytes/100 WBC (Bld) 24.9 % [facility] MCH (RBC) [Entitic mass] 30.6 pg 27.0 - 33.0 pg [facility] MCHC (RBC) [Mass/Vol] 33.7 g/dL 32.0 - 36.0 g/dL [facility] Comment on above: For adults, a slight decrease in the calculated MCHC value (in the range of 30 to 32 g/dL) is most likely not clinically significant; however, it should be interpreted with caution in correlation with other red cell parameters and the patient's clinical condition. MCV (RBC) [Entitic vol] 90.8 fL 80.0 - 100.0 fL [facility] Monocytes (Bld) [#/Vol] 442 10*3/uL [facility] Monocytes/100 WBC (Bld) 9.2 % [facility] Neutrophils (Bld) [#/Vol] 2952 10*3/uL [facility] Neutrophils/100 WBC (Bld) 61.5 % [facility] Platelet mean volume (Bld) [Entitic vol] 9.6 fL 7.5 - 12.5 fL [facility] Platelets (Bld) [#/Vol] 252 10*3/uL [facility] RBC (Bld) [#/Vol] 4.48 10*6/uL [facility] WBC (Bld) [#/Vol] 4.8 10*3/uL [facility] Laboratory - Chemistry and C hemistry - challengeon 08-29-2024 Albumin [Mass/Vol] 4.1 g/dL 3.6 - 5.1 g/dL [facility] Albumin/Globulin [Mass ratio] 1.6 {ratio} [facility] ALP [Catalytic activity/Vol] 36 U/L 31 - 125 U/L [facility] ALT [Catalytic activity/Vol] 13 U/L 6 - 29 U/L [facility] AST [Catalytic activity/Vol] 14 U/L 10 - 30 U/L [facility] Bilirubin [Mass/Vol] 0.5 mg/dL 0.2 - 1 .2 mg/dL [facility] Calcium [Mass/Vol] 9.1 mg/dL 8.6 - 10. 2 mg/dL [facility] Chloride [Moles/Vol] 106 mmol/L 98 - 11 0 mmol/L [facility] CO2 [Moles/Vol] 26 mmol/L 20 - 32 mmol/L [facility] Creatinine [Mass/Vol] 0.79 mg/dL 0.50 - 0.99 mg/dL [facility] Free T4 [Mass/Vol] 0.9 ng/dL 0.8 - 1.8 ng/dL [facility] GFR/1.73 sq M.predicted among non-blacks MDRD (S/P/Bld) [Vol rate/Area] 95 mL/min/{1.73_m2} > OR = 60 mL/min/1.73m 2 [facility] Globulin (S) [Mass/Vol] 2.5 g/dL [facility] Glucose [Mass/Vol] 54 mg/dL Low 65 - 99 mg/dL [facility] Comment on above: Fasting reference interval Insulin Qn 47.4 u[IU]/mL High uIU/mL [facility] Comment on above: Reference Range < or = 18.4 Risk: Optimal < or = 18.4 Moderate NA High >18.4 Adult cardiovascular event risk category cut points (optimal, moderate, high) are based on Insulin Reference Interval studies performed at [facility] in 2021. Potassium [Moles/Vol] 3.6 mmol/L 3.5 - 5.3 mmol/L [facility] Protein [Mass/Vol] 6.6 g/dL 6.1 - 8.1 g/dL [facility] Sodium [Moles/Vol] 139 mmol/L 135 - 146 mmol/L [facility] TSH Qn 0.35 m[IU]/L Low mIU/L [facility] Comment on above: Reference Range > or = 20 Years 0.40-4.50 Ranges First trimester 0.26-2.66 Second trimester 0.55-2.73 Third trimester 0.43-2.91 Urea nitrogen [Mass/Vol] 14 mg/dL 7 - 25 mg/dL [facility] Urea nitrogen/Creatinine [Mass ratio] SEE NOTE: [facility] Comment on above: Not Reported: BUN an d Creatinine are within reference range. Lipid 1996 panelon 4 Cholesterol [Mass/Vol] 164 mg/dL NINF - 200 mg/dL [facility] Cholesterol in HDL [Mass/Vol] 67 mg/dL > OR = 50 [facility] Cholesterol in LDL [Mass/Vol] 83 mg/dL mg/dL (calc) [facility] Comment on above: Reference range: <10 0 Desirable range <100 mg/dL for primary prevention; <70 mg/dL for patients with CHD or diabetic patients with > or = 2 CHD risk factors. LDL-C is now calculated using the Alyce calculation, which is a validated novel method providing better accuracy than the Friedewald equation in the estimation of LDL-C. Kevin HI et al. ROD. 2013;310(19): 8215-1596 (http://education.[employer]/faq/GMY515) Cholesterol non HDL [Mass/Vol] 97 mg/dL [facility] Comment on above: For patients with di abetes plus 1 major ASCVD risk factor, treating to a non-HDL-C goal of <100 mg/dL (LDL-C of <70 mg/dL) is considered a therapeutic option. Cholesterol.total/Cho lesterol in HDL [Mass ratio] 2.4 {ratio} [facility] Triglyceride [Mass/Vol] 68 mg/dL [facility] - 150 mg/dL [facility] Panel Informationon 08-29 Interpretation and review of laboratory results Abnormal [facility] Information Site ID: QTW Name: [facility] Address: [address] [place] [id number] Director: Anjelica Diaz [facility] Information Site ID: QPT Name: [facility] Address: [address] [place] [id number] Director: Clifford Shelley MD [facility] IGP,APTIMA HPV,AGE GDLNon AGE GDLN ACOG TESTING Note . [facility] Comment on above: TESTS RESULT FLAG UN ITS REF RANGE LAB Clinician Provided Cytology Information Source.............Vagina No. of containers..01 ThinPrep Vial Age Algo ACOG Xochilt... 30-65 01 FLAG LEGEND: L-Low Normal,H-High Normal,LL-Alert Low,HH-Alert High <-Panic Low,>-Panic High,A-Abnormal,AA-Critical Abnormal Performed at: 01 =[address] [phone] Mari Arellano MD, HPV APTIMA Negative Negative [facility] Comment on above: This nucleic acid am plification test detects fourteen high- risk HPV types (16,18,31,33,35,39,45,51,52,56,58,59,66,68) without differentiation. Performed at: =[address] [id number] Community Engagement Coordinator: Mari Arellano MD, Phone: [phone] Performed at: [address] [id number] Community Engagement Coordinator: Mari Arellano MD, Phone: [phone] IGP, APTIMA HPV, RFX 16/18,45 Note . [facility] Comment on above: TESTS RESULT FLAG UN ITS REF RANGE LAB DIAGNOSIS: 02 NEGATIVE FOR INTRAEPITHELIAL LESION OR MALIGNANCY. Specimen adequacy: 02 Satisfactory for evaluation. No endocervical component is identified. Performed by: [facility] [employer] ([employer]) . 02 Note: Note 02 The Pap smear is a screening test designed to aid in the detection of premalignant and malignant conditions of the uterine cervix. It is not a diagnostic procedure and should not be used as the sole means of detecting cervical cancer. Both false-positive and false-negative reports do occur. Test Methodology: Note 02 This liquid based ThinPrep(R) pap test was screened with the use of an image guided system. HPV Genotype Reflex Note 02 Criteria not met, HPV Genotype not performed. FLAG LEGEND: L-Low Normal,H-High Normal,LL-Alert Low,HH-Alert High <-Panic Low,>-Panic High,A-Abnormal,AA-Critical Abnormal Performed at: 02 WB [facility] [address] [id number] Mari Arellano MD, [facility] Healthcare Cytology Cervical or vaginal smear or scraping studyon 05-31-2023 [facility] Healthcare T3, TOTAL (TRIIODOTHYRONINE) on 09-27-2022 T3, TOTAL 122 ng/dL Normal 71-180 [facility] Comment on above: Performed By: #### T 3TOTAL #### [facility] [address] [address] [address] Harry Bojorquez T4on 09-26-2022 T4 [Mass/Vol] 8.50 ug/dL Normal 4.80-13.90 [facility] Comment on above: Performed By: #### 4 [id number] #### [facility] [address] [address] [address] Harry Bojorquez TSHon 09-26-2022 TSH 0.243 uIU/mL Critically low 0.358-3.740 [facility] Comment on above: Performed By: #### 4 [id number] #### [facility] [address] [address] [address] Harry Bojorquez MG MAMM ZULEYKA DIAG W CADon MG MAMM ZULEYKA DIAG W CAD Patient: SACHA DOE Exam Date: 06/28/2022 : 1980 Gender:F Ordering : DR LUIS ALBERTO GÓMEZ . Admission #: [id number] Family : Order #: [id number] CLICK HERE TO VIEW EXAM RADIOLOGY REPORT PROCEDURE: MAMMOGRAM BILATERAL DIAGNOSTIC DIGITAL WITH COMPUTER AIDED DETECTION COMPARISON: MG MAMM ZULEYKA DIAG FU, 11/12/2021. MG MAMM SCREEN 3D ZULEYKA CAD, 10/29/2021. INDICATIONS: Abnormal findings on diagnostic imaging of breast Calculator Name NCI Breast Cancer Risk Assessment Tool 5 Year Breast Cancer Risk 0.60% Lifetime Breast Cancer Risk 9.70% Personal Breast Cancer No Personal Ovarian Cancer No Treatments hysterectomy Family Cancers Mother with lung cancer at age 68. LOCATION: [facility] BREAST COMPOSITION: Heterogeneously dense,which may obscure small masses. FINDINGS: DIAGNOSTIC CATEGORY 2--BENIGN FINDING. NO CHANGE FROM COMPARISON. Scattered benign-appearing calcifications are present. Scattered benign-appearing lymph nodes are present. RIGHT BREAST: Areas of asymmetry upper outer quadrant are stable. LEFT BREAST: Area of asymmetry upper outer quadrant is stable. RECOMMENDATIONS: ROUTINE MAMMOGRAM AND CLINICAL EVALUATION IN 12 MONTHS. PLEASE NOTE: A NORMAL MAMMOGRAM DOES NOT EXCLUDE THE POSSIBILITY OF BREAST CANCER. A CLINICALLY SUSPICIOUS PALPABLE LUMP SHOULD BE BIOPSIED. Dictated by: Yusef Aguirre MD on 06/28/2022 at 11:28 Approved by: Yusef Aguirre MD on 06/28/2022 at 11:31 [facility] PAP ACOG PANEL 2: 30 to 65on 04-16-2022 . . Normal [facility] Comment on above: Result Comment: Perf ormed at: BA Performed By: #### 4 [id number] #### [facility] [address] [address] [address] Harry Bojorquez Age Gdln ACOG Testing 30-65 Normal [facility] Comment on above: Performed By: #### 4 [id number] #### [facility] [address] [address] [address] Harry Bojorquez DIAGNOSIS: Comment Normal [facility] Comment on above: Result Comment: NEGA TIVE FOR INTRAEPITHELIAL LESION OR MALIGNANCY. Performed at: BA Performed By: #### 4 [id number] #### [facility] [address] [place] [address] Dr. Harry Bojorquez HPV Aptima Negative Normal Negative [facility] Comment on above: Result Comment: This nucleic acid amplification test detects fourteen high-risk HPV types (16,18,31,33,35,39,45,51,52,56,58,59,66,68) without differentiation. Performed at: =G Performed By: #### 4 [id number] #### [facility] [address] [address] [address] Harry Bojorquez Methodology: Comment Normal [facility] Comment on above: Result Comment: This liquid based ThinPrep(R) pap test was screened with the use of an image guided system. Performed at: WB Performed By: #### 4 [id number] #### [facility] [address] [place] [address] Dr. Harry Bojorquez Note: Comment Normal [facility] Comment on above: Result Comment: The Pap smear is a screening test designed to aid in the detection of premalignant and malignant conditions of the uterine cervix. It is not a diagnostic procedure and should not be used as the sole means of detecting cervical cancer. Both false-positive and false-negative reports do occur. . Performed at: WB Performed By: #### 4 [id number] #### [facility] [address] [place] [address] Dr. Harry Bojorquez Performed by: Comment Normal [facility] Comment on above: Result Comment: Joe Ceja, Delivery Of [employer] (ASCP) Performed at: BA Performed By: #### 4 [id number] #### [facility] [address] [place] [address] Dr. Harry Bojorquez Specimen adequacy: Comment Normal [facility] Comment on above: Result Comment: Sati sfactory for evaluation. No endocervical component is identified. Performed at: BA Performed By: #### 4 [id number] #### [facility] [address] [place] [address] Dr. Harry Bojorquez US PELVIS AND TRANSVAGon US PELVIS AND TRANSVAG EXAMINATION: US PELVIS AND TRANSVAG HISTORY: Abdominal pain COMPARISON: 02/23/2021 FINDINGS: Transabdominal and transvaginal images The uterus is surgically absent The right ovary is normal in size and contour measuring 3.0 x 2.1 x 2.0 cm. Areas of anechoic echogenicity the largest measuring 1.5 cm, follicles versus cysts. Normal color flow. The left ovary is normal in size and contour measuring 2.2 x 1.7 x 2.9 cm. Normal color flow IMPRESSION: No acute abnormality Electronically authenticated by: YUSEF AGUIRRE Date: 2021-12-30 10:34 Normal [facility] ESTROGENon 12-16-2021 Estrogens, Total 130 pg/mL Normal [facility] Comment on above: Result Comment: Prep ubertal < 40 Female Cycle: 1-10 Days 16 - 328 11-20 Days 34 - 501 21-30 Days 48 - 350 Post-Menopausal 40 - 244 Performed By: #### L BCFS #### [facility] [address] [place] [address] Dr. Harry Bojorquez INSULINon 12-13-2021 Insulin 11.3 uIU/mL Normal 2.6-24.9 [facility] Comment on above: Performed By: #### I NSULIN #### [facility] [address] [address] [address] Harry Bojorquez TESTOSTERONE, FREE,DIRECT, T OTALon 12-13-2021 Free Testosterone(Direct) 2.8 pg/mL Normal 0.0-4.[address] [facility] Comment on above: Result Comment: Perf ormed at: BN Performed By: #### T ESTFRD #### [facility] [address] [address] [address] Harry Bojorquez Testosterone [Mass/Vol] 50 ng/dL Normal 4-50 [facility] Comment on above: Result Comment: Perf ormed at: CB Performed By: #### T ESTFRD #### [facility] [address] [place] [address] Dr. Harry Bojorquez VIT D 1 25 DIHYDROXYon 12-13 Calcitriol(1,25 di-OH Vit D) 43.2 pg/mL Normal 19.9-79.3 [facility] Comment on above: Performed By: #### L [facility] #### [facility] [address] [place] [address] Dr. Harry Bojorquez DHEA-SULFATEon 12-12-2021 DHEA-Sulfate 181.0 ug/dL Normal 57.3-279.2 [facility] Comment on above: Performed By: #### D MICHAEL #### [facility] [address] [place] [address] Dr. Harry Bojorquez FSHon 12-12-2021 FSH 6.4 mIU/mL Normal [facility] Comment on above: Result Comment: Adul t Female: Follicular phase 3.5 - 12.5 Ovulation phase 4.7 - 21.5 Luteal phase 1.7 - 7.7 Postmenopausal 25.8 - 134.8 Performed By: #### L [facility] #### [facility] [address] [place] [address] Dr. Harry Bojorquez PROGESTERONEon 12-12-2021 Progesterone 4.4 ng/mL Normal [facility] Comment on above: Result Comment: Foll icular phase 0.1 - 0.9 Luteal phase 1.8 - 23.9 Ovulation phase 0.1 - 12.0 First trimester 11.0 - 44.3 Second trimester 25.4 - 83.3 Third trimester 58.7 - 214.0 Postmenopausal 0.0 - 0.1 Performed By: #### P ROGES #### [facility] [address] [place] [address] Dr. Harry Bojorquez PROLACTINon 12-12-2021 Prolactin 14.4 ng/mL Normal 4.8-23.3 [facility] Comment on above: Performed By: #### P ROLAC #### [facility] [address] [place] [address] Dr. Harry Bojorquez CBC AUTO DIFFon 12-11-2021 BASO # 0.1 103/ul Normal 0.0-0.1 [facility] Comment on above: Performed By: #### 4 [id number] #### [facility] [address] [place] [address] Dr. Harry Bojroquez Basophils/100 WBC (Bld) 1.3 % Normal 0.2-2.0 [facility] Comment on above: Performed By: #### 4 [id number] #### [facility] [address] [place] [address] Dr. Harry Bojorquez EO # 0.3 103/ul Normal 0.0-0.7 [facility] Comment on above: Performed By: #### 4 [id number] #### [facility] [address] [place] [address] Dr. Harry Bojorquez Eosinophils/100 WBC (Bld) 4.4 % Normal 0.9-7.0 [facility] Comment on above: Performed By: #### 4 [id number] #### [facility] [address] [place] [address] Dr. Harry Bojorquez Erythrocyte distribution width (RBC) [Ratio] 12.5 % Normal 11.0-15.0 [facility] Comment on above: Performed By: #### 4 [id number] #### [facility] [address] [place] [address] Dr. Harry Bojorquez Hematocrit (Bld) [Volume fraction] 46.7 % Normal 36.0-48.0 [facility] Comment on above: Performed By: #### 4 [id number] #### [facility] [address] [place] [address] Dr. Harry Bojorquez Hemoglobin (Bld) [Mass/Vol] 15.6 g/dL Normal 12.0-16.0 [facility] Comment on above: Performed By: #### 4 [id number] #### [facility] [address] [place] [address] Dr. Harry Bojorquez IG # 0.01 10e3/ul Normal 0.00-0.03 [facility] Comment on above: Performed By: #### 4 [id number] #### [facility] [address] [place] [address] Dr. Harry Bojorquez IG % 0.1 % Normal 0.0-0.5 [facility] Comment on above: Performed By: #### 4 [id number] #### [facility] [address] [place] [address] Dr. Harry Bojorquez LYMPH # 1.8 103/ul Normal 1.2-3.8 [facility] Comment on above: Performed By: #### 4 [id number] #### [facility] [address] [place] [address] Dr. Harry Bojorquez Lymphocytes/100 WBC (Bld) 25.5 % Normal 20.5-60.0 [facility] Comment on above: Performed By: #### 4 [id number] #### [facility] [address] [place] [address] Dr. Harry Bojorquez MANUAL DIFF REQ NO Normal [facility] Comment on above: Performed By: #### 4 [id number] #### [facility] [address] [place] [address] Dr. Harry Bojorquez MCH (RBC) [Entitic mass] 30.4 pg Normal 26.7-34.0 [facility] Comment on above: Performed By: #### 4 [id number] #### [facility] [address] [place] [address] Dr. Harry Bojorquez MCHC (RBC) [Mass/Vol] 33.4 g/dL Normal 29.9-35.2 [facility] Comment on above: Performed By: #### 4 [id number] #### [facility] [address] [place] [address] Dr. Harry Bojorquez MCV (RBC) [Entitic vol] 91.0 fL Normal 81.0-99.0 [facility] Comment on above: Performed By: #### 4 [id number] #### [facility] [address] [place] [address] Dr. Harry Bojorquez MONO # 0.7 103/ul Normal 0.3-0.8 [facility] Comment on above: Performed By: #### 4 [id number] #### [facility] [address] [place] [address] Dr. Harry Bojorquez Monocytes/100 WBC (Bld) 9.8 % Normal 1.7-12.0 [facility] Comment on above: Performed By: #### 4 [id number] #### [facility] [address] [place] [address] Dr. Harry Bojorquez NEUT # 4.2 103/ul Normal 1.4-6.5 [facility] Comment on above: Performed By: #### 4 [id number] #### [facility] [address] [place] [address] Dr. Harry Bojorquez Neutrophils/100 WBC (Bld) 58.9 % Normal 43.0-75.0 [facility] Comment on above: Performed By: #### 4 [id number] #### [facility] [address] [place] [address] Dr. Harry Bojorquez Platelet mean volume (Bld) [Entitic vol] 9.5 fL Normal 9.5-13.5 [facility] Comment on above: Performed By: #### 4 [id number] #### [facility] [address] [place] [address] Dr. Harry Bojorquez PLT 342 103/ul Normal 150-450 [facility] Comment on above: Performed By: #### 4 [id number] #### [facility] [address] [place] [address] Dr. Haryr Bojorquez RBC 5.13 106/ul Normal 4.20-5.40 [facility] Comment on above: Performed By: #### 4 [id number] #### [facility] [address] [place] [address] Dr. Harry Bojorquez WBC 7.1 103/ul Normal 4.0-11.0 [facility] Comment on above: Performed By: #### 4 [id number] #### [facility] [address] [place] [address] Dr. Harry Bojorquez FREE T3on 12-11-2021 FREE T3 3.23 pg/mlL Normal 2.77-5.27 [facility] Comment on above: Performed By: #### T SH, FT3 #### [facility] [address] [place] [address] Dr. Harry Bojorquez FREE T4on 12-11-2021 Free T4 [Mass/Vol] 1.36 ng/dL Normal 0.78-2.19 [facility] Comment on above: Performed By: #### 4 [id number] #### [facility] [address] [place] [address] Dr. Harry Bojorquez GLYCOHEMOGLOBIN A1Con 2021 ADA RECOMMENDATION ADA THERAPEUTIC TARG ET 6.0 - 7.0 ACTION SUGGESTED > 7.0 Normal [facility] Comment on above: Performed By: #### 4 [id number] #### [facility] [address] [address] [address] Harry Bojorquez Glucose [Mass/Vol] 103 mg/dL Normal [facility] Comment on above: Performed By: #### 4 [id number] #### [facility] [address] [address] [address] Harry Bojorquez HbA1c (Bld) [Mass fraction] 5.2 % Normal <=6.0 [facility] Comment on above: Performed By: #### 4 [id number] #### [facility] [address] [address] [address] Harry Bojorquez PROF 14(COMP METB)on 022 Albumin [Mass/Vol] 4.1 g/dL Normal 3.5-5.0 [facility] Comment on above: Performed By: #### 4 [id number] #### [facility] [address] [address] [address] Harry Bojorquez Albumin/Globulin [Mass ratio] 1.1 {ratio} Normal [facility] Comment on above: Performed By: #### 4 [id number] #### [facility] [address] [address] [address] Harry Bojorquez ALP [Catalytic activity/Vol] 71 U/L Normal 38-126 [facility] Comment on above: Performed By: #### 4 [id number] #### [facility] [address] [address] [address] Harry Bojorquez ALT [Catalytic activity/Vol] 54 U/L Critically high 9-52 [facility] Comment on above: Performed By: #### 4 [id number] #### [facility] [address] [address] [address] Harry Bojorquez Anion gap [Moles/Vol] 12.2 mmol/L Normal [facility] Comment on above: Performed By: #### 4 [id number] #### [facility] [address] [place] [address] Dr. Harry Bojorquez AST [Catalytic activity/Vol] 27 U/L Normal 14-36 [facility] Comment on above: Performed By: #### 4 [id number] #### [facility] [address] [address] [address] Harry Bojorquez Bilirubin [Mass/Vol] 0.5 mg/dL Normal 0.2-1.3 [facility] Comment on above: Performed By: #### 4 [id number] #### [facility] [address] [place] [address] Dr. Harry Bojorquez Calcium [Mass/Vol] 9.6 mg/dL Normal 8.4-10.2 [facility] Comment on above: Performed By: #### 4 [id number] #### [facility] [address] [place] [address] Dr. Harry Bojorquez Chloride [Moles/Vol] 102 mmol/L Normal 98-107 [facility] Comment on above: Performed By: #### 4 [id number] #### [facility] [address] [place] [address] Dr. Harry Bojorquez CO2 [Moles/Vol] 28.6 mmol/L Normal 22.0-30.0 [facility] Comment on above: Performed By: #### 4 [id number] #### [facility] [address] [place] [address] Dr. Harry Bojorquez Creatinine [Mass/Vol] 0.65 mg/dL Normal 0.52-1.04 [facility] Comment on above: Performed By: #### 4 [id number] #### [facility] [address] [place] [address] Dr. Harry Bojorquez EGFR-AF LITHUANIAN >60 Normal >=60 [facility] Comment on above: Performed By: #### 4 [id number] #### [facility] [address] [place] [address] Dr. Harry Bojorquez EGFR-NON AF LITHUANIAN >60 Normal >=60 [facility] Comment on above: Performed By: #### 4 [id number] #### [facility] [address] [place] [address] Dr. Harry Bojorquez Globulin (S) [Mass/Vol] 3.6 g/dL Normal [facility] Comment on above: Performed By: #### 4 [id number] #### [facility] [address] [address] [address] Harry Bojorquez Glucose [Mass/Vol] 97 mg/dL Normal 74-106 [facility] Comment on above: Performed By: #### 4 [id number] #### [facility] [address] [place] [address] Dr. Harry Bojorquez Potassium [Moles/Vol] 3.8 mmol/L Normal 3.4-5.0 [facility] Comment on above: Performed By: #### 4 [id number] #### [facility] [address] [place] [address] Dr. Harry Bojorquez Protein [Mass/Vol] 7.7 g/dL Normal 6.1-8.[address] [facility] Comment on above: Performed By: #### 4 [id number] #### [facility] [address] [place] [address] Dr. Harry Bojorquez Sodium [Moles/Vol] 139 mmol/L Normal 137-145 [facility] Comment on above: Performed By: #### 4 [id number] #### [facility] [address] [place] [address] Dr. Harry Bojorquez Urea nitrogen [Mass/Vol] 13.0 mg/dL Normal 7.0-17.0 [facility] Comment on above: Performed By: #### 4 [id number] #### [facility] [address] [place] [address] Dr. Harry Bojorquez Urea nitrogen/Creatinine [Mass ratio] 20.0 mg/mg Normal [facility] Comment on above: Performed By: #### 4 [id number] #### [facility] [address] [place] [address] Dr. Harry Bojorquez TSHon 12-11-2021 TSH 0.577 uIU/mL Normal 0.470-4.680 [facility] Comment on above: Performed By: #### T SH, FT3 #### [facility] [address] [place], [place] [address] Dr. Harry Bojorquez TSH RANGE SEE BELOW Normal [facility] Comment on above: Result Comment: <0.3 4 UIU/ml HYPERTHYROID 0.34-5.60 UIU/ml EUTHYROID >5.60 UIU/ml HYPOTHYROID Performed By: #### T SH, FT3 #### [facility] [address] [place], [place] [address] Dr. Harry Bojorquez MG MAMM ZULEYKA DIAG FUon 2020 MG MAMM ZULEYKA DIAG FU Patient: SACHA DOE Exam Date: 11/12/2021 : 1980 Gender:F Ordering : DR LUIS ALBERTO GÓMEZ . Admission #: [id number] Family : Order #: [id number] CLICK HERE TO VIEW EXAM RADIOLOGY REPORT PROCEDURE: MAMMOGRAM BILATERAL DIGANOSTIC DIGITAL FOLLOW UP, 11/12/2021, 09:29 ULTRASOUND BREAST RIGHT LIMITED, 11/12/2021, 10:05 COMPARISON: MG MAMM SCREEN 3D ZU[place]KA CAD, 10/29/2021. INDICATIONS: Abnormal findings on diagnostic imaging of breast Calculator Name NCI Breast Cancer Risk Assessment Tool 5 Year Breast Cancer Risk 0.60% Lifetime Breast Cancer Risk 9.70% Personal Breast Cancer No Personal Ovarian Cancer No Treatments hysterectomy Family Cancers Mother with lung cancer at age 68. LOCATION: [facility] BREAST COMPOSITION: Heterogeneously dense,which may obscure small masses. FINDINGS: DIAGNOSTIC CATEGORY 3--PROBABLY BENIGN FINDING. THE FOLLOWING FINDING(S) HAS A HIGH PROBABILITY OF A BENIGN ETIOLOGY: RIGHT BREAST: Spot magnification views demonstrate partial dispersion of asymmetries within the posterior upper-outer quadrant. Ultrasound evaluation demonstrates areas of dense fibroglandular tissue. No suspicious findings. Follow-up diagnostic mammography of the right and left breast is recommended to document stability and to help establish baseline. LEFT BREAST: Spot magnification views demonstrate dispersion of asymmetry within the posterior upper-outer quadrant. RECOMMENDATIONS: SHORT TERM FOLLOW-UP DIAGNOSTIC MAMMOGRAM BILATERAL BREASTS IN 6 MONTHS. PLEASE NOTE: A NORMAL MAMMOGRAM DOES NOT EXCLUDE THE POSSIBILITY OF BREAST CANCER. A CLINICALLY SUSPICIOUS PALPABLE LUMP SHOULD BE BIOPSIED. Dictated by: Baljit Clifton M.D. on 11/12/2021 at 14:58 Approved by: Baljit Clifton M.D. on 11/12/2021 at 15:01 Normal [facility] US BREAST RIGHT LIMITEDon US BREAST RIGHT LIMITED Patient: SACHA DOE Exam Date: 11/12/2021 : 1980 Gender:F Ordering : DR LUIS ALBERTO GÓMEZ . Admission #: [id number] Family : Order #: [id number] CLICK HERE TO VIEW EXAM RADIOLOGY REPORT PROCEDURE: MAMMOGRAM BILATERAL DIGANOSTIC DIGITAL FOLLOW UP, 11/12/2021, 09:29 ULTRASOUND BREAST RIGHT LIMITED, 11/12/2021, 10:05 COMPARISON: MG MAMM SCREEN 3D ZU[place]KA CAD, 10/29/2021. INDICATIONS: Abnormal findings on diagnostic imaging of breast Calculator Name NCI Breast Cancer Risk Assessment Tool 5 Year Breast Cancer Risk 0.60% Lifetime Breast Cancer Risk 9.70% Personal Breast Cancer No Personal Ovarian Cancer No Treatments hysterectomy Family Cancers Mother with lung cancer at age 68. LOCATION: [facility] BREAST COMPOSITION: Heterogeneously dense,which may obscure small masses. FINDINGS: DIAGNOSTIC CATEGORY 3--PROBABLY BENIGN FINDING. THE FOLLOWING FINDING(S) HAS A HIGH PROBABILITY OF A BENIGN ETIOLOGY: RIGHT BREAST: Spot magnification views demonstrate partial dispersion of asymmetries within the posterior upper-outer quadrant. Ultrasound evaluation demonstrates areas of dense fibroglandular tissue. No suspicious findings. Follow-up diagnostic mammography of the right and left breast is recommended to document stability and to help establish baseline. LEFT BREAST: Spot magnification views demonstrate dispersion of asymmetry within the posterior upper-outer quadrant. RECOMMENDATIONS: SHORT TERM FOLLOW-UP DIAGNOSTIC MAMMOGRAM BILATERAL BREASTS IN 6 MONTHS. PLEASE NOTE: A NORMAL MAMMOGRAM DOES NOT EXCLUDE THE POSSIBILITY OF BREAST CANCER. A CLINICALLY SUSPICIOUS PALPABLE LUMP SHOULD BE BIOPSIED. Dictated by: Baljit Clifton M.D. on 11/12/2021 at 14:58 Approved by: Baljit Clifton M.D. on 11/12/2021 at 15:01 Normal [facility] MG MAMM SCREEN 3D ZULEYKA CADon 10-29-2021 MG MAMM SCREEN 3D ZULEYKA CAD Patient: SACHA DOE Exam Date: 10/29/2021 : 1980 Gender:F Ordering : DR LUIS ALBERTO GÓMEZ . Admission #: [id number] Family : Order #: [id number] CLICK HERE TO VIEW EXAM RADIOLOGY REPORT PROCEDURE: MAMMOGRAM SCREENING 3D BILATERAL CAD COMPARISON: None. INDICATIONS: Screening mammography Calculator Name NCI Breast Cancer Risk Assessment Tool 5 Year Breast Cancer Risk 0.60% Lifetime Breast Cancer Risk 9.70% Personal Breast Cancer No Personal Ovarian Cancer No Treatments hysterectomy Family Cancers Mother with lung cancer at age 68. LOCATION: [facility] BREAST COMPOSITION: Heterogeneously dense,which may obscure small masses. FINDINGS: DIAGNOSTIC CATEGORY 0--INCOMPLETE: NEED ADDITIONAL IMAGING EVALUATION. Scattered benign-appearing calcifications are present. Scattered benign-appearing lymph nodes are present. The breasts are medium in size. Two areas of architectural distortion are identified in the outer half of the right breast seen only definitively on the CC projection and on tomographic images. Area of architectural distortion upper outer quadrant left mid breast. Spot compression of these 3 areas with ultrasound follow-up is recommended RECOMMENDATIONS: ADDITIONAL MAMMOGRAPHIC VIEWS REQUIRED: BILATERAL BREASTS - spot compression views ULTRASOUND: BILATERAL BREASTS PLEASE NOTE: A NORMAL MAMMOGRAM DOES NOT EXCLUDE THE POSSIBILITY OF BREAST CANCER. A CLINICALLY SUSPICIOUS PALPABLE LUMP SHOULD BE BIOPSIED. Dictated by: Yusef Aguirre MD on 10/29/2021 at 15:01 Approved by: Yusef Aguirre MD on 10/29/2021 at 15:03 Normal [facility] Vital Signs Date Time Vital Sign Value Performing Clinician Facility 08-15-2025 08:59-0400 Body height 165.1 cm Win Win Slots DO Work Phone: [facility] 08-15-2025 08:59-0400 Body mass index (BMI) [Ratio] 25.96 kg/m2 Glenn Lakewood DO Work Phone: [facility] 08-15-2025 08:59-0400 Body temperature 97 [degF] Glenn Lakewood DO Work Phone: [facility] 08-15-2025 08:59-0400 Body weight 70.76 kg Glenn Lakewood DO Work Phone: [facility] 08-15-2025 08:59-0400 Diastolic blood pressure 70 mm[Hg] Glenn Lakewood DO Work Phone: [facility] 08-15-2025 08:59-0400 Heart rate 93 /min Glenn Lakewood DO Work Phone: [facility] 08-15-2025 08:59-0400 SaO2% (BldA) [Mass fraction] 97 % Glenn Lakewood DO Work Phone: [facility] 08-15-2025 08:59-0400 Systolic blood pressure 116 mm[Hg] Glenn Lakewood DO Work Phone: [facility] 04-19-2025 14:37-0400 Body height 161.29 cm [facility] 04-19-2025 14:37-0400 Body mass index (BMI) [Ratio] 28.5 kg/m2 [facility] 04-19-2025 14:37-0400 Body temperature 98 [degF] [facility] 04-19-2025 14:37-0400 Body weight 74.38 kg [facility] 04-19-2025 14:37-0400 Diastolic blood pressure 63 mm[Hg] [facility] 04-19-2025 14:37-0400 Heart rate 80 /min [facility] 04-19-2025 14:37-0400 Respiratory rate 16 /min [facility] 04-19-2025 14:37-0400 SaO2% (BldA) [Mass fraction] 99 % [facility] 04-19-2025 14:37-0400 Systolic blood pressure 108 mm[Hg] [facility] 10-08-2024 11:30-0500 Body height 165.1 cm Glenn Lakewood DO Work Phone: [facility] 10-08-2024 11:30-0500 Body mass index (BMI) [Ratio] 26.46 kg/m2 Glenn Lakewood DO Work Phone: [facility] 10-08-2024 11:30-0500 Body temperature 97.2 [degF] Glenn Lakewood DO Work Phone: [facility] 10-08-2024 11:30-0500 Body weight 72.12 kg Glenn Lakewood DO Work Phone: [facility] 10-08-2024 11:30-0500 Diastolic blood pressure 70 mm[Hg] Glenn Lakewood DO Work Phone: [facility] 10-08-2024 11:30-0500 Heart rate 70 /min Glenn Lakewood DO Work Phone: [facility] 10-08-2024 11:30-0500 SaO2% (BldA) [Mass fraction] 99 % Glenn Lakewood DO Work Phone: [facility] 10-08-2024 11:30-0500 Systolic blood pressure 126 mm[Hg] Glenn Lakewood DO Work Phone: [facility] 08-21-2024 14:25-0400 Body mass index (BMI) [Ratio] 25.13 kg/m2 Shayy IBARRA Work Phone: [facility] 08-21-2024 14:25-0400 Body weight 68.49 kg Shayy IBARRA Work Phone: [facility] 08-21-2024 14:25-0400 Diastolic blood pressure 72 mm[Hg] Shayy IBARRA Work Phone: [facility] 08-21-2024 14:25-0400 Systolic blood pressure 118 mm[Hg] Shayy IBARRA Work Phone: [facility] 08-21-2024 10:44-0400 Body height 165.1 cm Glenn Lakewood DO Work Phone: [facility] 08-21-2024 10:44-0400 Body mass index (BMI) [Ratio] 25.13 kg/m2 Glenn Lakewood DO Work Phone: [facility] 08-21-2024 10:44-0400 Body temperature 97.81 [degF] Glenn Lakewood DO Work Phone: [facility] 08-21-2024 10:44-0400 Body weight 68.49 kg Glenn Lakewood DO Work Phone: [facility] 08-21-2024 10:44-0400 Diastolic blood pressure 74 mm[Hg] Glenn Lakewood DO Work Phone: [facility] [employer] 08-21-2024 10:44-0400 Heart rate 88 /min Glenn Lakewood DO Work Phone: [facility] 08-21-2024 10:44-0400 SaO2% (BldA) [Mass fraction] 98 % Glenn Lakewood DO Work Phone: [facility] 08-21-2024 10:44-0400 Systolic blood pressure 120 mm[Hg] Glenn Lakewood DO Work Phone: [facility] 11-01-2023 17:00-0500 Body height 161.29 cm Salud Scarlett Other [employer] Other 11-01-2023 17:00-0500 Body mass index (BMI) [Ratio] 26.29 kg/m2 Salud Scarlett Other [employer] Other 11-01-2023 17:00-0500 Body temperature 98.9 [degF] Salud Scarlett Other [employer] Other 11-01-2023 17:00-0500 Body weight 68.4 kg Salud Scarlett Other [employer] Other 11-01-2023 17:00-0500 Diastolic blood pressure 61 mm[Hg] Salud Scarlett Other [employer] Other 11-01-2023 17:00-0500 Respiratory rate 18 /min Salud Scarlett Other [employer] Other 11-01-2023 17:00-0500 SaO2% (BldA) [Mass fraction] 98 % Salud Pantoja Other [employer] Other 11-01-2023 17:00-0500 Systolic blood pressure 99 mm[Hg] Salud Scarlett Other [employer] Other 03-28-2023 15:30-0400 Body height 161.29 cm Salud Scarlett Other [employer] Other 03-28-2023 15:30-0400 Body mass index (BMI) [Ratio] 28.24 kg/m2 Salud Scarlett Other [employer] Other 03-28-2023 15:30-0400 Body temperature 98.3 [degF] Salud Scarlett Other [employer] Other 03-28-2023 15:30-0400 Body weight 73.48 kg Salud Scarlett Other [employer] Other 03-28-2023 15:30-0400 Diastolic blood pressure 61 mm[Hg] Salud Scarlett Other [employer] Other 03-28-2023 15:30-0400 Respiratory rate 16 /min Salud Scarlett Other [employer] Other 03-28-2023 15:30-0400 SaO2% (BldA) [Mass fraction] 98 % Salud Scarlett Other [employer] Other 03-28-2023 15:30-0400 Systolic blood pressure 101 mm[Hg] Salud Scarlett Other [employer] Other Encounters Encounter Date Encounter Type Care Provider Facility Start: 08-15-2025 End: 08-15-2025 Cedric Baker DO [facility] Start: 08-15-2025 End: 08-15-2025 Bamboo flowsheet Lgenn L Lakewood DO Work Phone: [facility] 230 Start: 08-15-2025 End: 08-15-2025 Office outpatient visit 25 minutes Glenn L Lakewood DO Work Phone: [facility] 230 Comment on above: Postoperative hypoth yroidism ; Metabolic syndrome; Gastroesophageal reflux disease without esophagitis; Chronic peptic ulcer, site unspecified, without hemorrhage or perforation; Anxiety and depression ; Allergic rhinitis, unspecified seasonality, unspecified trigger; Insulin resistance; Encounter for screening for coronary artery disease; Right hip pain Start: 08-15-2025 End: 08-15-2025 ambulatory GLENN L CUTLER Not Available Start: 08-04-2025 End: 08-05-2025 Refill Alivia Luu MA [facility] 230 Comment on above: Postoperative hypoth yroidism ; Insulin resistance; Encounter for screening for coronary artery disease Start: 04-24-2025 End: 04-24-2025 Refill Glenn L Lakewood DO Work Phone: [facility] 230 Comment on above: Metabolic syndrome Start: 04-22-2025 End: 04-22-2025 Refill Glenn L Lakewood DO Work Phone: [facility] 230 Comment on above: Metabolic syndrome Start: 04-19-2025 End: 04-19-2025 ambulatory [facility] Work Phone: Start: 04-19-2025 End: 04-19-2025 Patient encounter procedure [facility] Work Phone: Start: 04-17-2025 End: 04-17-2025 Refill Glenn L Lakewood DO Work Phone: [facility] 230 Comment on above: Gastroesophageal ref lux disease without esophagitis Start: 10-28-2024 End: 10-28-2024 ambulatory GLENN L CUTLER Not Available Start: 10-08-2024 End: 10-08-2024 Bamboo flowsheet Glenn L Lakewood DO Work Phone: [facility] 230 Start: 10-08-2024 End: 10-08-2024 Bamboo flowsheet Glenn L Lakewood DO [facility] Start: 10-08-2024 End: 10-08-2024 Office outpatient visit 25 minutes Glenn L Lakewood DO Work Phone: [facility] 230 Comment on above: Mass of upper outer quadrant of left breast (Primary Dx); Overweight Start: 10-08-2024 End: 10-08-2024 ambulatory GLENN L CUTLER Not Available Start: 08-21-2024 End: 08-21-2024 Bamboo flowsheet Glenn L Lakewood DO Work Phone: [facility] Start: 08-21-2024 End: 08-28-2024 Bamboo flowsheet Glenn L Lakewood DO Work Phone: [facility] 230 Start: 08-21-2024 End: 08-28-2024 Clinisync Result Encounter Shayy IBARRA Work Phone: [facility] Unsolicited Start: 08-21-2024 End: 08-21-2024 Patient encounter procedure Shayy IBARRA Work Phone: [facility] Start: 08-21-2024 End: 08-21-2024 Patient encounter status Glenn L Lakewood DO Work Phone: [facility] Start: 08-21-2024 End: 08-21-2024 Periodic preventive med est patient 40-64yrs Shayy IBARRA Work Phone: [facility] Comment on above: Well woman exam with routine gynecological exam; Breast cancer screening by mammogram Wellness examination (Primary Dx); Metabolic syndrome; Post-operative hypothyroidism (CMS/HCC); Insulin resistance; Peripheral venous insufficiency; Anxiety and depression (CMS/HCC); Chronic peptic ulcer, site unspecified, without hemorrhage or perforation; Allergic rhinitis, unspecified seasonality, unspecified trigger; Postoperative hypothyroidism (CMS/HCC); Gastroesophageal reflux disease without esophagitis; Encounter for screening for coronary artery disease; Encounter for screening mammogram for malignant neoplasm of breast; Right hip pain Start: 11-01-2023 End: 11-01-2023 ambulatory Salud Pantoja Other [employer] Other Start: 11-01-2023 Office outpatient vi sit 15 minutes Salud Scarlett [facility] Start: 03-28-2023 End: 03-28-2023 ambulatory Salud Pantoja Other [employer] Other Start: 03-28-2023 Office outpatient ne w 20 minutes Salud Scarlett [facility] Start: 09-26-2022 End: 09-27-[address] ALDEN VARMA Facility:[facility] Start: 06-28-2022 End: 06-29-[address] LUIS ALBERTO GÓMEZ Facility:[facility] Start: 04-12-2022 End: 04-12-[address] LUIS ALBERTO GÓMEZ Facility:[facility] Start: 12-30-2021 End: 12-31-[address] LUIS ALBERTO GÓMEZ Facility:[facility] Start: 12-11-2021 End: 12-12-[address] LUIS ALBERTO GÓMEZ Facility:[facility] Start: 11-12-2021 End: 11-13-[address] LUIS ALBERTO GÓMEZ Facility:[facility] Start: 10-29-2021 End: 10-30-2021 ambulatory SHAIKH Mansoor DICKENS Facility:[facility]1 Procedures Date Procedure Procedure Detail Performing Clinician Start: 10-28-2024 Mammography Glenn Cu tler DO Work Phone: Start: 08-28-2024 Complete blood count with white cell differential, automated Glenn Baker DO Work Phone: Start: 08-28-2024 Comprehensive metabo lic panel Glenn Baker DO Work Phone: Start: 08-28-2024 Lipid panel Glenn Baker DO Work Phone: Start: 08-21-2024 IGP,APTIMA HPV,AGE GDLN Shayy Katz PA Work Phone: Start: 07-19-2023 Mammography Glenn Cu tler DO Work Phone: Start: 05-31-2023 Cytp cerv/vag auto t hin layer prep mnl screen Shayy IBARRA Work Phone: Plan of Treatment Date Care Activity Detail Author Start: 02-12-2026 End: 02-12-2026 Patient encounter procedure 02/12/2026 9:20 AM EDT Office Visit [facility] [address] [facility] 230 [place] [phone] lGenn Baker DO [address] [facility] 230 [place] [address] [facility] 230 Start: 10-28-2025 Screening for malign ant neoplasm of breast [facility]ammogram [facility] Start: 09-01-2025 End: 09-01-2025 Patient encounter procedure [facility] Start: 08-26-2025 End: 08-26-2025 Patient encounter procedure 08/26/2025 10:00 AM EDT [facility] Visit [facility] [address] [place] [phone] Luis Alberto Gómez DO [address] [place] [address] [facility] Start: 08-15-2025 End: 08-15-2026 CBC W Auto Differential panel - Blood CBC and differential Lab Routine Postoperative hypothyroidism Insulin resistance Encounter for screening for coronary artery disease Expected: 08/15/2025 (Approximate), Expires: 08/15/2026 [facility] Comment on above: Expected: 08/15/2025 (Approximate), Expires: 08/15/2026 Start: 08-15-2025 End: 08-15-2026 Comprehensive metabolic 2000 panel - Serum or Plasma Comprehensive metabolic panel Lab Routine Postoperative hypothyroidism Insulin resistance Encounter for screening for coronary artery disease Expected: 08/15/2025 (Approximate), Expires: 08/15/2026 [facility] Comment on above: Expected: 08/15/2025 (Approximate), Expires: 08/15/2026 Start: 08-15-2025 End: 08-15-2026 Hemoglobin A1c/Hemoglobin.total in Blood Hemoglobin A1c Lab Routine Insulin resistance Expected: 08/15/2025 (Approximate), Expires: 08/15/2026 [facility] Comment on above: Expected: 08/15/2025 (Approximate), Expires: 08/15/2026 Start: 08-15-2025 End: 08-15-2026 Lipid 1996 panel - Serum or Plasma Lipid panel Lab Routine Postoperative hypothyroidism Insulin resistance Encounter for screening for coronary artery disease Expected: 08/15/2025 (Approximate), Expires: 08/15/2026 [facility] Work Phone: Comment on above: Expected: 08/15/2025 (Approximate), Expires: 08/15/2026 Start: 08-15-2025 End: 08-15-2026 Thyrotropin [Units/volume] in Serum or Plasma Tsh+free t4 Lab Routine Postoperative hypothyroidism Expected: 08/15/2025 (Approximate), Expires: 08/15/2026 [facility] Comment on above: Expected: 08/15/2025 (Approximate), Expires: 08/15/2026 Start: 08-15-2025 End: 08-15-2026 Triiodothyronine (T3) Free [Mass/volume] in Serum or Plasma T3, free Lab Routine Postoperative hypothyroidism Expected: 08/15/2025 (Approximate), Expires: 08/15/2026 [facility] Comment on above: Expected: 08/15/2025 (Approximate), Expires: 08/15/2026 Start: 08-15-2025 End: 08-15-2025 Patient encounter procedure 08/15/2025 9:00 AM EDT Office Visit [facility] [address] [place] [address] [place] [address] Glenn Baker DO [address] [place] [address] [place] [address] Arrived [facility] 230 Comment on above: Arrived Start: 08-05-2025 End: 08-05-2026 CBC W Auto Differential panel - Blood CBC and differential Lab Routine Postoperative hypothyroidism Insulin resistance Encounter for screening for coronary artery disease Expected: 08/05/2025 (Approximate), Expires: 08/05/2026 [facility] Comment on above: Expected: 08/05/2025 (Approximate), Expires: 08/05/2026 Start: 08-05-2025 End: 08-05-2026 Comprehensive metabolic 2000 panel - Serum or Plasma Comprehensive metabolic panel Lab Routine Postoperative hypothyroidism Insulin resistance Encounter for screening for coronary artery disease Expected: 08/05/2025 (Approximate), Expires: 08/05/2026 [facility] Comment on above: Expected: 08/05/2025 (Approximate), Expires: 08/05/2026 Start: 08-05-2025 End: 08-05-2026 Hemoglobin A1c/Hemoglobin.total in Blood Hemoglobin A1c Lab Routine Insulin resistance Expected: 08/05/2025 (Approximate), Expires: 08/05/2026 [facility] Comment on above: Expected: 08/05/2025 (Approximate), Expires: 08/05/2026 Start: 08-05-2025 End: 08-05-2026 Lipid 1996 panel - Serum or Plasma Lipid panel Lab Routine Postoperative hypothyroidism Insulin resistance Encounter for screening for coronary artery disease Expected: 08/05/2025 (Approximate), Expires: 08/05/2026 [facility] Comment on above: Expected: 08/05/2025 (Approximate), Expires: 08/05/2026 Start: 08-05-2025 End: 08-05-2026 Thyrotropin [Units/volume] in Serum or Plasma Tsh+free t4 Lab Routine Postoperative hypothyroidism Expected: 08/05/2025 (Approximate), Expires: 08/05/2026 [facility] Work Phone: Comment on above: Expected: 08/05/2025 (Approximate), Expires: 08/05/2026 Start: 08-05-2025 End: 08-05-2026 Triiodothyronine (T3) Free [Mass/volume] in Serum or Plasma T3, free Lab Routine Postoperative hypothyroidism Expected: 08/05/2025 (Approximate), Expires: 08/05/2026 [facility] Comment on above: Expected: 08/05/2025 (Approximate), Expires: 08/05/2026 Start: 07-21-2025 Influenza vaccination [facility] Start: 11-11-2024 End: 11-11-2024 Professional / ancillary services management 11/11/2024 1:30 PM EST Ancillary Procedure [facility] [place] [address] [place] [id number] [facility] [place] Start: 10-28-2024 End: 10-28-2024 Professional / ancillary services management [facility] [place] Start: 10-08-2024 End: 10-08-2024 Patient encounter procedure 10/08/2024 11:20 AM EST Office Visit [facility] [address] [place] [address] Glenn Baker DO [address] [place] [place] [address] Arrived [facility] 230 Comment on above: Arrived Start: 08-21-2024 End: 10-21-2025 MG Breast - bilateral Screening Bilateral screening mammogram Imaging Routine Breast cancer screening by mammogram Expected: 08/21/2024 (Approximate), Expires: 10/21/2025 [facility] Comment on above: Expected: 08/21/2024 (Approximate), Expires: 10/21/2025 Start: 08-21-2024 End: 08-21-2024 Patient encounter procedure 08/21/2024 2:00 PM EDT Office Visit [facility] [address] [id number] Shayy Katz PA [address] [place] [address] [facility] Start: 07-21-2024 Influenza vaccination Influenza Vacc ine (#1) [facility] Start: 07-19-2024 Screening for malign ant neoplasm of breast Mammogram [facility] Start: 1980 Screening for malign ant neoplasm of colon [facility] THIN PREP TIS PAP AN D HR HPV DNA THIN PREP TIS PAP AND HR HPV DNA Pathology and Cytology Routine Well woman exam with routine gynecological exam Ordered: 08/21/2024 [facility] Work Phone: Comment on above: Ordered: 08/21/2024 Payers Date Payer Category Payer Medicaid [id number] 2022 Private Health Insurance [employer] [id number] 2022 Unknown [employer] [id number] 2022-Present [address] [place] [address] [id number] 2022 Unknown [id number] 1979 Unknown [id number] [id number]. 593 1979 Unknown [id number] 2.16.840.1.532971.3.579.2. 593 1979 Unknown [id number] [id number]. 593 1979 Unknown [id number] 2.16.840.1.567046.3.579.2. 593 1979 Unknown [id number] 2.16.840.1.394499.3.579.2. 593 1979 Unknown [id number] 2.16.840.1.787719.3.579.2. 593 1979 Unknown [id number] 2.16.840.1.517109.3.579.2. 593 1979 Unknown [id number] 2.16.840.1.906708.3.579.2. 593 1979 Unknown [id number] 2.16.840.1.229165.3.579.2. 1259 1979 Unknown [id number] 2.16.840.1.708230.3.579.2. 1259 1979 Unknown [id number] [id number]. 1259 1979 Unknown [id number] [id number]. 1259 1959 Unknown [id number] 1959 Unknown [id number] 1959 Unknown [id number] Social History Date Type Detail Facility Start: 08-02-2023 End: 08-15-2025 Sex Assigned At [facility] Start: 08-02-2023 End: 08-21-2024 Tobacco smoking status [facility] Ex-smoker [facility] History of tobacco use Current smoker [facility] History of tobacco use Cigarette Smoker [facility] Start: 08-02-2023 End: 08-21-2024 Tobacco use and exposure Smokeless tobacco non-user [facility] Start: 03-15-2024 End: 08-15-2025 Alcoholic beverage intake Current drinker of alcohol (finding) [facility] Start: 08-02-2023 End: 08-15-2025 History of Social function [facility] Within the last year , have you been afraid of your partner or ex-partner? No [facility] Are you now , , , , never or living with a partner? Living with partner [facility] How often to you hav e a drink containing alcohol? Monthly or less [facility] How many standard dr inks containing alcohol do you have on a typical day? 1 or 2 [facility] How often do you hav e 6 or more drinks on 1 occasion? Never [facility] How hard is it for y ou to pay for the very basics like food, housing, medical care, and heating Not hard at all [facility] Do you feel stress - tense, restless, nervous, or anxious, or unable to sleep at night because your mind is troubled all the time - these days [OSQ] Not at all [facility] (I/We) worried whevivek er (my/our) food would run out before (I/we) got money to buy more. Never true [facility] Start: 04-19-2023 Tobacco Comment 21-30 cigs a day [facility] Start: 04-19-2023 Alcohol Comment Caffeine intak e: 1-2 cups per day [facility] Start: 1980 Sex assigned at Female [facility] Start: 05-30-2023 Gender identity Identifies as female gender (finding) [facility] Start: 05-30-2023 Sexual orientation Choose not to dis close [facility] Tobacco smoking stat us KYIS Unknown if ever smoked [facility] Work Phone: Start: 04-19-2025 Sex Female (finding) [facility] Functional Status Date Assessment Result Facility 08-15-2025 Patient Health [facility] ionnaire 2 item (PHQ-2) [Reported] [facility] Clinical Notes 03-28-2023 to 08-15-2025 Glenn Baker, DO - 08/15/2025 9:00 AM EDTTelephone Encounter - Glenn Baker, DO - 08/05/2025 11:54 AM EDTTelephone Encounter - Glenn Ena Baker, DO - 08/05/2025 11:54 AM EDT Note Date & Type Note Facility 08-15-2025 History of Presen t illness Narrative Images from the original note were not included. [facility] SUBJECTIVE: HPI: Sacha Doe is a 44 y.o. female who presents with chief complaint of Follow-up Pt states she is here for a follow up. Pt states that her blood work showed low TSH level. Pt states she needs refills on her medication. I have reviewed and reconciled the history and medication list with the patient today. History of Present Illness The patient is a female presenting for diabetes, thyroid management, and hip pain. Diabetes - She manages her blood sugar with Mounjaro 7.5 mg every other week, which is effective without nausea. - She is not using compounded medications. Thyroid Management - Thyroid management includes levothyroxine. - She has a goiter and notes mood fluctuations with unstable thyroid levels. Hip Pain - She requests another Toradol injection for hip pain due to osteoarthritis. - She avoids NSAIDs due to stomach issues. - She takes pantoprazole and uses Carafate and famotidine as needed for stomach discomfort, triggered by certain foods. - She is on Lexapro for mood stabilization, which she finds beneficial. MEDICATIONS - Mounjaro: 7.5 mg every other week - Levothyroxine - Pantoprazole - Lexapro Depression: Not at risk (08/15/2025) PHQ-2 PHQ-2 Score: 0 reports that she has quit smoking. Her smoking use included cigarettes. She has never used smokeless tobacco. She reports current alcohol use. She reports that she does not use drugs. OBJECTIVE: 08/02/2023 1:45 PM 11/29/2023 9:23 AM 03/15/2024 2:09 PM 08/21/2024 10:44 AM 08/21/2024 2:25 PM 10/08/2024 11:30 AM 08/15/2025 8:59 AM Vitals BMI 25.13 kg/m2 24.83 kg/m2 24.96 kg/m2 25.13 kg/m2 25.13 kg/m2 26.46 kg/m2 25.96 kg/m2 BSA (m2) 1.77 m2 1.76 m2 1.77 m2 1.77 m2 1.77 m2 1.82 m2 1.8 m2 Systolic 118 112 120 118 126 116 Diastolic 66 62 74 72 70 70 Heart Rate 77 75 88 70 93 SpO2 99 % 98 % 98 % 99 % 97 % Temp 98.5 F 95.9 F 97.8 F 97.2 F 97 F Height (in) 5' 5 5' 5 5' 5 5' 5 5' 5 5' 5 Weight (lb) 151 149.2 150 151 151 159 156 Visit Report Report Report Report Report Report Report Report Report Report Physical Exam Constitutional: General: She is not in acute distress. Appearance: She is not ill-appearing. HENT: Head: Normocephalic. Cardiovascular: Rate and Rhythm: Normal rate and regular rhythm. Heart sounds: No murmur heard. Pulmonary: Effort: Pulmonary effort is normal. Breath sounds: Normal breath sounds. No wheezing. Abdominal: General: Abdomen is flat. There is no distension. Tenderness: There is no abdominal tenderness. Musculoskeletal: General: No deformity. Normal range of motion. Cervical back: Normal range of motion. Skin: General: Skin is warm and dry. Neurological: General: No focal deficit present. Mental Status: She is alert and oriented to person, place, and time. Psychiatric: Mood and Affect: Mood normal. Behavior: Behavior normal. Thought Content: Thought content normal. Judgment: Judgment normal. Physical Exam Results Laboratory Studies Cholesterol levels are stable, LDL close to under 70, HDL 64. Blood sugar 79. Kidney function (filtration rate) 91. Electrolytes normal. Liver function normal. WBC count normal, hemoglobin 13.8. A1c 4.9. TSH slightly low, T4 and T3 normal. Recent Results (from the past 4 weeks) Tsh+free t4 Collection Time: 08/13/25 9:51 AM Result Value Ref Range TSH 0.17 (L) mIU/L T4, FREE 1.1 0.8 - 1.8 ng/dL T3, free Collection Time: 08/13/25 9:51 AM Result Value Ref Range T3, FREE 3.2 2.3 - 4.2 pg/mL Hemoglobin A1c Collection Time: 08/13/25 9:51 AM Result Value Ref Range Hemoglobin A1C 4.9 <5.7 % CBC and differential Collection Time: 08/13/25 9:51 AM Result Value Ref Range WHITE BLOOD CELL COUNT 5.3 3.8 - 10.8 Thousand/uL RED BLOOD CELL COUNT 4.43 3.80 - 5.10 Million/uL HEMOGLOBIN 13.8 11.7 - 15.5 g/dL HEMATOCRIT 41.4 35.0 - 45.0 % MCV 93.5 80.0 - 100.0 fL MCH 31.2 27.0 - 33.0 pg MCHC 33.3 32.0 - 36.0 g/dL RDW 13.3 11.0 - 15.0 % PLATELET COUNT 326 140 - 400 Thousand/uL MPV 9.8 7.5 - 12.5 fL ABSOLUTE NEUTROPHILS 3,498 1,500 - 7,800 cells/uL ABSOLUTE LYMPHOCYTES 1,203 850 - 3,900 cells/uL ABSOLUTE MONOCYTES 408 200 - 950 cells/uL ABSOLUTE EOSINOPHILS 122 15 - 500 cells/uL ABSOLUTE BASOPHILS 69 0 - 200 cells/uL NEUTROPHILS 66 % LYMPHOCYTES 22.7 % MONOCYTES 7.7 % EOSINOPHILS 2.3 % BASOPHILS 1.3 % Comprehensive metabolic panel Collection Time: 08/13/25 9:51 AM Result Value Ref Range Glucose 79 65 - 99 mg/dL BUN 12 7 - 25 mg/dL Creatinine 0.81 0.50 - 0.99 mg/dL EGFR 91 > OR = 60 mL/min/1.73m2 BUN/CREATININE RATIO SEE NOTE: 6 - 22 (calc) Sodium 137 135 - 146 mmol/L Potassium, Bld 4.4 3.5 - 5.3 mmol/L Chloride 104 98 - 110 mmol/L Carbon Dioxide 28 20 - 32 mmol/L Calcium 9.9 8.6 - 10.2 mg/dL PROTEIN, TOTAL 6.8 6.1 - 8.1 g/dL ALBUMIN 4.2 3.6 - 5.1 g/dL GLOBULIN 2.6 1.9 - 3.7 g/dL (calc) ALBUMIN/GLOBULIN RATIO 1.6 1.0 - 2.5 (calc) BILIRUBIN, TOTAL 0.4 0.2 - 1.2 mg/dL ALKALINE PHOSPHATASE 43 31 - 125 U/L AST 13 10 - 35 U/L ALT 12 6 - 29 U/L Lipid panel Collection Time: 08/13/25 9:51 AM Result Value Ref Range CHOLESTEROL, TOTAL 157 <200 mg/dL HDL CHOLESTEROL 64 > OR = 50 mg/dL TRIGLYCERIDES 84 <150 mg/dL LDL CHOLESTEROL 77 mg/dL (calc) CHOL/HDLC RATIO 2.5 <5.0 (calc) NON HDL CHOLESTEROL 93 <130 mg/dL (calc) ASSESSMENT AND PLAN: Assessment/Plan Diagnoses and all orders for this visit: Postoperative hypothyroidism - levothyroxine (Synthroid, Levoxyl) 50 MCG tablet; Take 1 tablet (50 mcg) by mouth in the morning. Take before meals. - liothyronine (Cytomel) 5 MCG tablet; Take 1 tablet (5 mcg) by mouth Daily - Lipid panel; Future - Comprehensive metabolic panel; Future - CBC and differential; Future - T3, free; Future - Tsh+free t4; Future Metabolic syndrome - Tirzepatide (Mounjaro) 7.5 MG/0.5ML solution auto-injector; Inject 7.5 mg under the skin 1 (one) time per week Gastroesophageal reflux disease without esophagitis - pantoprazole (Protonix) 40 MG EC tablet; Take 1 tablet (40 mg) by mouth in the morning. Take before meals. - sucralfate (Carafate) 1 g tablet; Take 1 tablet (1 g) by mouth every 6 (six) hours if needed (reflux) Chronic peptic ulcer, site unspecified, without hemorrhage or perforation - famotidine (Pepcid) 20 MG tablet; Take 1 tablet (20 mg) by mouth Daily Anxiety and depression - escitalopram (Lexapro) 20 MG tablet; Take 1 tablet (20 mg) by mouth in the morning. Allergic rhinitis, unspecified seasonality, unspecified trigger - fluticasone (Flonase) 50 MCG/ACT nasal spray; Administer 2 sprays into each nostril in the morning and 2 sprays before bedtime. Shake gently. Before first use, prime pump. After use, clean tip and replace cap. - levocetirizine (Xyzal) 5 MG tablet; Take 1 tablet (5 mg) by mouth Daily Insulin resistance - Lipid panel; Future - Comprehensive metabolic panel; Future - CBC and differential; Future - Hemoglobin A1c; Future Encounter for screening for coronary artery disease - Lipid panel; Future - Comprehensive metabolic panel; Future - CBC and differential; Future Right hip pain - ketorolac (Toradol) injection 30 mg Assessment & Plan 1. Metabolic Syndrome: Stable. A1c 4.9, likely due to Mounjaro. Blood sugar 79. - Continue Mounjaro 7.5 mg every other week. 2. Thyroid management: TSH slightly low, T4 and T3 normal. - Maintain current levothyroxine dose and monitor thyroid function. 3. Hip pain: Due to osteoarthritis. - Administer Toradol injection. - Avoid other NSAIDs today. 4. Stomach issues. - Continue pantoprazole. - Use Carafate and famotidine as needed. 5. Mood stabilization. - Continue Lexapro. 6. Health maintenance: Cholesterol levels stable, LDL close to target under 70, HDL 64. Kidney function normal, filtration rate 91. Liver function and blood counts normal. - Reorder blood work before next visit in 6 months. Follow-up - Scheduled in 6 months. Glenn Baker DO Patient Active Problem List Diagnosis Allergic rhinitis Hypothyroidism Insulin resistance Internal derangement of left knee Multinodular goiter Nontoxic single thyroid nodule Palpitations Post-operative hypothyroidism Smoker Tachycardia Peripheral venous insufficiency Osteoarthritis of knee Chondromalacia Chondromalacia of left knee Past Medical History: Diagnosis Date Allergic Anxiety Depression Gastritis GERD (gastroesophageal reflux disease) Hypothyroidism OA (osteoarthritis) Postprocedural hypothyroidism Sinus tachycardia Thyroid nodule goiter Left Urinary tract infection documented in this encounter [facility] 08-05-2025 Telephone encount er Note 30 day rx sent, needs appointment with labs prior. Orders sent to [facility]. [facility] 08-05-2025 Miscellaneous Notes Formattin g of this note might be different from the original. 30 day rx sent, needs appointment with labs prior. Orders sent to [facility]. Received request from DD for pt's Liothyroine Pt has not been seen since Sep 2024 documented in this encounter [facility] 08-04-2025 Telephone encount er Note Received request from DD for pt's Liothyroine Pt has not been seen since Sep 2024 [facility] 10-08-2024 History of Presen t illness Narrative Images from the original note were not included. [facility] SUBJECTIVE: HPI: Sacha Doe is a 44 y.o. female who presents with chief complaint of No chief complaint on file. Pt presents for a lump on her left breast. Pt notes that about a week ago she noticed a bruise. She felt like this was just because she slept on it wrong. Pt notes that the next day she noticed a lump in the area the size of about a pea. She notes that the area is tender to the touch and hard. Pt does have a family hx of cancer. Pt would also like to have a Cologuard colon cancer screening sent to her home. I have reviewed and reconciled the history and medication list with the patient today. Depression: Not at risk (08/02/2023) PHQ-2 PHQ-2 Score: 0 reports that she has quit smoking. Her smoking use included cigarettes. She has never used smokeless tobacco. She reports current alcohol use. She reports that she does not use drugs. OBJECTIVE: 05/31/2023 10:07 AM 08/02/2023 1:45 PM 11/29/2023 9:23 AM 03/15/2024 2:09 PM 08/21/2024 10:44 AM 08/21/2024 2:25 PM 10/08/2024 11:30 AM Vitals BMI 25.29 kg/m2 25.13 kg/m2 24.83 kg/m2 24.96 kg/m2 25.13 kg/m2 25.13 kg/m2 26.46 kg/m2 BSA (m2) 1.78 m2 1.77 m2 1.76 m2 1.77 m2 1.77 m2 1.77 m2 1.82 m2 Systolic 118 118 112 120 118 126 Diastolic 70 66 62 74 72 70 Heart Rate 77 75 88 70 SpO2 99 % 98 % 98 % 99 % Temp 98.5 F 95.9 F 97.8 F 97.2 F Height (in) 5' 5 5' 5 5' 5 5' 5 5' 5 5' 5 Weight (lb) 152 151 149.2 150 151 151 159 Visit Report Report Report Report Report Report Report Report Report Report Physical Exam Constitutional: General: She is not in acute distress. Appearance: She is not ill-appearing. HENT: Head: Normocephalic. Cardiovascular: Rate and Rhythm: Normal rate and regular rhythm. Heart sounds: No murmur heard. Pulmonary: Effort: Pulmonary effort is normal. Breath sounds: Normal breath sounds. No wheezing. Chest: Comments: Small freely mobile mass upper inner quadrant of L breast Abdominal: General: Abdomen is flat. There is no distension. Tenderness: There is no abdominal tenderness. Musculoskeletal: General: No deformity. Normal range of motion. Cervical back: Normal range of motion. Skin: General: Skin is warm and dry. Neurological: General: No focal deficit present. Mental Status: She is alert and oriented to person, place, and time. Psychiatric: Mood and Affect: Mood normal. Behavior: Behavior normal. Thought Content: Thought content normal. Judgment: Judgment normal. No results found for this or any previous visit (from the past 4 weeks). ASSESSMENT AND PLAN: Assessment/Plan Diagnoses and all orders for this visit: Mass of upper outer quadrant of left breast - Left breast US limited; Future - Bilateral diagnostic mammogram with tomosynthesis; Future Overweight - buPROPion (Wellbutrin) 75 MG tablet; Take 2 tablets (150 mg) by mouth in the morning and 2 tablets (150 mg) before bedtime. - naltrexone (Depade) 50 MG tablet; Take 1 tablet (50 mg) by mouth Daily Will evaluate breast change with mamm and US, call with results. Suspect this may have been traumatic in nature, but she does not remember any Discussed medications to aid in weight loss since mounjaro was denied. Glenn Baker DO Patient Active Problem List Diagnosis Allergic rhinitis Hypothyroidism (CMS/HCC) Insulin resistance Internal derangement of left knee Multinodular goiter (CMS/HCC) Nontoxic single thyroid nodule (CMS/HCC) Palpitations Post-operative hypothyroidism (CMS/HCC) Smoker Tachycardia Peripheral venous insufficiency Past Medical History: Diagnosis Date Allergic Anxiety Depression (CMS/HCC) Gastritis GERD (gastroesophageal reflux disease) OA (osteoarthritis) Sinus tachycardia Thyroid nodule (CMS/HCC) goiter Left Urinary tract infection documented in this encounter [facility] 08-21-2024 History of Presen t illness Narrative Reason for Appointment: Patient ID: Sacha Doe is a 43 y.o. female who presents for Gynecologic Exam Patient presents today for Annual Exam. MEDICATIONS Current Outpatient Medications Medication Instructions albuterol HFA 90 mcg/act inhaler 2 puffs, Inhalation, Every 4 hours PRN chlorhexidine (Peridex) 0.12 % solution Rinse 15 mL twice daily after breakfast and before bedtime NEEDED FOR 30 DAYS cholecalciferol (Vitamin D-3) 25 MCG (1000 UT) capsule Vitamin D3 escitalopram (LEXAPRO) 20 mg, Oral, Every morning famotidine (PEPCID) 20 mg, Oral, Daily fluticasone (Flonase) 50 MCG/ACT nasal spray 2 sprays, Each Nostril, 2 times daily, Shake gently. Before first use, prime pump. After use, clean tip and replace cap. levocetirizine (XYZAL) 5 mg, Oral, Daily levothyroxine (SYNTHROID, LEVOXYL) 50 mcg, Oral, Daily before breakfast liothyronine (CYTOMEL) 5 mcg, Oral, Daily Mounjaro 7.5 mg, Subcutaneous, Weekly pantoprazole (PROTONIX) 40 mg, Oral, Daily before breakfast sucralfate (CARAFATE) 1 g, Oral, 4 times daily PRN ALLERGIES Allergies Allergen Reactions Latex Sulfamethoxazole Dermatitis, Diarrhea, Hives, Itching and Rash PROBLEMS Active Ambulatory Problems Diagnosis Date Noted Allergic rhinitis 08/01/2023 Hypothyroidism ([facility]) 08/29/2013 Insulin resistance 08/01/2023 Internal derangement of left knee 08/01/2023 Multinodular goiter ([facility]) 08/01/2023 Nontoxic single thyroid nodule ([facility]) 08/01/2023 Palpitations 08/29/2013 Post-operative hypothyroidism ([facility]) 08/01/2023 Smoker 08/01/2023 Tachycardia 08/29/2013 Peripheral venous insufficiency 08/21/2024 Resolved Ambulatory Problems Diagnosis Date Noted No Resolved Ambulatory Problems Past Medical History: Diagnosis Date Allergic Anxiety Depression ([facility]) Gastritis GERD (gastroesophageal reflux disease) OA (osteoarthritis) Sinus tachycardia Thyroid nodule ([facility]) Urinary tract infection HISTORY PAST MEDICAL HISTORY SOCIAL HISTORY Past Medical History: Diagnosis Date Allergic Anxiety Depression ([facility]) Gastritis GERD (gastroesophageal reflux disease) OA (osteoarthritis) Sinus tachycardia Thyroid nodule ([facility]) goiter Left Urinary tract infection Social History Tobacco Use Smoking status: Former Current packs/day: 1.00 Types: Cigarettes Smokeless tobacco: Never Tobacco comments: 21-30 cigs a day Substance Use Topics Alcohol use: Yes Comment: Caffeine intake: 1-2 cups per day Drug use: Never FAMILY HISTORY Family History Problem Relation Name Age of Onset Diabetes Mother Dolores Cancer Mother Dolores Learning disabilities Mother Dolores Cancer Father Americo Diabetes Maternal Grandmother Kacey Mental illness Maternal Grandmother Kacey Stroke Maternal Grandmother Kacey Arthritis Maternal Grandmother Kacey Diabetes Maternal Grandfather Chin Heart disease Maternal Grandfather Chin Stroke Maternal Grandfather Chin Cancer Paternal Grandmother Kacey Stroke Paternal Grandfather Chin No Known Problems Daughter No Known Problems Son SURGICAL HISTORY Past Surgical History: Procedure Laterality Date ADENOIDECTOMY APPENDECTOMY CHOLECYSTECTOMY EGD HYSTERECTOMY 04/16/2021 KNEE SURGERY Left 2016 Knee Scope - Dr. Sommer KNEE SURGERY Left 04/08/2021 KNEE SCOPE - DR RODRIGUEZ [place] LAP,CHOLECYSTECTOMY THYROIDECTOMY Left 11/24/2014 TUBAL LIGATION REVIEW OF SYSTEMS Review of Systems: Review of Systems Constitutional: Negative. HENT: Negative. Eyes: Negative. Respiratory: Negative. Cardiovascular: Negative. Gastrointestinal: Negative. Genitourinary: Negative. Musculoskeletal: Negative. Neurological: Negative. Psychiatric/Behavioral: Negative. All other systems reviewed and are negative. OBJECTIVE Objective: Physical Exam Constitutional: Appearance: Normal appearance. She is well-developed. Genitourinary: Vulva normal. Right Adnexa: not tender and no mass present. Left Adnexa: not tender and no mass present. No cervical discharge. Breasts: Breasts are soft. Right: Normal. Left: Normal. HENT: Head: Normocephalic. Nose: Nose normal. Mouth/Throat: Mouth: Mucous membranes are moist. Cardiovascular: Rate and Rhythm: Normal rate and regular rhythm. Pulmonary: Effort: Pulmonary effort is normal. Breath sounds: Normal breath sounds. Abdominal: General: Bowel sounds are normal. There is no distension. Palpations: Abdomen is soft. Tenderness: There is no abdominal tenderness. There is no guarding or rebound. Musculoskeletal: General: No swelling. Normal range of motion. Cervical back: Normal range of motion. Right lower leg: No edema. Left lower leg: No edema. Neurological: General: No focal deficit present. Mental Status: She is alert and oriented to person, place, and time. Skin: General: Skin is warm and dry. Psychiatric: Mood and Affect: Mood normal. Behavior: Behavior normal. Vitals and nursing note reviewed. Exam conducted with a hi teacher present. Vitals: Estimated body mass index is 25.13 kg/m as calculated from the following: Height as of an earlier encounter on 08/21/24: 5' 5 . Weight as of an earlier encounter on 08/21/24: 151 lb. BP: No LMP recorded. Patient has had a hysterectomy. ASSESSMENT & PLAN ICD-10-CM 1. Well woman exam with routine gynecological exam Z01.419 THIN PREP TIS PAP AND HR HPV DNA Pt present today for annual visit. Pt has no issues or complaints at this time. Breast exam and pap smear was preformed and collected by Shayy Katz PA-C. Pt to return in one year for annual visit. Documented by Bharati Gordillo MA on behalf of: FRED Marshall documented in this encounter [facility] 08-21-2024 History of Presen t illness Narrative Images from the original note were not included. SUBJECTIVE: HPI: Sacha Doe is a 44 y.o. female who presents with chief complaint of No chief complaint on file. Pt presents for her annual wellness. She would like to have her yearly labs ordered along with her Thyroid. I have reviewed and reconciled the history and medication list with the patient today. Depression: Not at risk (08/02/2023) PHQ-2 PHQ-2 Score: 0 reports that she has quit smoking. Her smoking use included cigarettes. She has never used smokeless tobacco. She reports current alcohol use. She reports that she does not use drugs. OBJECTIVE: 05/31/2023 10:07 AM 08/02/2023 1:45 PM 11/29/2023 9:23 AM 03/15/2024 2:09 PM 08/21/2024 10:44 AM 08/21/2024 2:25 PM 10/08/2024 11:30 AM Vitals BMI 25.29 kg/m2 25.13 kg/m2 24.83 kg/m2 24.96 kg/m2 25.13 kg/m2 25.13 kg/m2 26.46 kg/m2 BSA (m2) 1.78 m2 1.77 m2 1.76 m2 1.77 m2 1.77 m2 1.77 m2 1.82 m2 Systolic 118 118 112 120 118 126 Diastolic 70 66 62 74 72 70 Heart Rate 77 75 88 70 SpO2 99 % 98 % 98 % 99 % Temp 98.5 F 95.9 F 97.8 F 97.2 F Height (in) 5' 5 5' 5 5' 5 5' 5 5' 5 5' 5 Weight (lb) 152 151 149.2 150 151 151 159 Visit Report Report Report Report Report Report Report Report Report Report Physical Exam Constitutional: General: She is not in acute distress. Appearance: She is not ill-appearing. HENT: Head: Normocephalic. Cardiovascular: Rate and Rhythm: Normal rate and regular rhythm. Heart sounds: No murmur heard. Pulmonary: Effort: Pulmonary effort is normal. Breath sounds: Normal breath sounds. No wheezing. Abdominal: General: Abdomen is flat. There is no distension. Tenderness: There is no abdominal tenderness. Musculoskeletal: General: No deformity. Normal range of motion. Cervical back: Normal range of motion. Skin: General: Skin is warm and dry. Neurological: General: No focal deficit present. Mental Status: She is alert and oriented to person, place, and time. Psychiatric: Mood and Affect: Mood normal. Behavior: Behavior normal. Thought Content: Thought content normal. Judgment: Judgment normal. Recent Results (from the past 4 weeks) Hemoglobin A1c Collection Time: 09/18/24 9:13 AM Result Value Ref Range Hemoglobin A1C 4.9 <5.7 % of total Hgb ASSESSMENT AND PLAN: Assessment/Plan Diagnoses and all orders for this visit: Wellness examination - CBC and differential; Future - Comprehensive metabolic panel; Future - Lipid panel; Future Metabolic syndrome - Tirzepatide (Mounjaro) 7.5 MG/0.5ML solution auto-injector; Inject 7.5 mg under the skin 1 (one) time per week Post-operative hypothyroidism (CMS/HCC) - Tsh+free t4; Future Insulin resistance - Insulin, fasting; Future Peripheral venous insufficiency - General supply request: Compression stockings Anxiety and depression (CMS/HCC) - escitalopram (Lexapro) 20 MG tablet; Take 1 tablet (20 mg) by mouth in the morning. Chronic peptic ulcer, site unspecified, without hemorrhage or perforation - famotidine (Pepcid) 20 MG tablet; Take 1 tablet (20 mg) by mouth Daily Allergic rhinitis, unspecified seasonality, unspecified trigger - levocetirizine (Xyzal) 5 MG tablet; Take 1 tablet (5 mg) by mouth Daily - fluticasone (Flonase) 50 MCG/ACT nasal spray; Administer 2 sprays into each nostril in the morning and 2 sprays before bedtime. Shake gently. Before first use, prime pump. After use, clean tip and replace cap.. Postoperative hypothyroidism (CMS/HCC) - levothyroxine (Synthroid, Levoxyl) 50 MCG tablet; Take 1 tablet (50 mcg) by mouth in the morning. Take before meals. Gastroesophageal reflux disease without esophagitis - pantoprazole (Protonix) 40 MG EC tablet; Take 1 tablet (40 mg) by mouth in the morning. Take before meals. - sucralfate (Carafate) 1 g tablet; Take 1 tablet (1 g) by mouth 4 (four) times a day as needed (reflux symptoms) Encounter for screening for coronary artery disease - CBC and differential; Future - Comprehensive metabolic panel; Future - Lipid panel; Future Encounter for screening mammogram for malignant neoplasm of breast Right hip pain - ketorolac (Toradol) injection 30 mg Preventative care discussed as appropriate. Previous labs were reviewed, new orders placed as appropriate. Recommend continuing annual wellness examinations. Lab results will be communicated to her, patient would like to restart mounjaro Compression socks: 20-30mmhg requested, rx sent All meds refilled at current dose, chronic conditions are stable Patient Active Problem List Diagnosis Allergic rhinitis Hypothyroidism (CMS/HCC) Insulin resistance Internal derangement of left knee Multinodular goiter (CMS/HCC) Nontoxic single thyroid nodule (CMS/HCC) Palpitations Post-operative hypothyroidism (CMS/HCC) Smoker Tachycardia Peripheral venous insufficiency Past Medical History: Diagnosis Date Allergic Anxiety Depression (CMS/HCC) Gastritis GERD (gastroesophageal reflux disease) OA (osteoarthritis) Sinus tachycardia Thyroid nodule (CMS/HCC) goiter Left Urinary tract infection documented in this encounter [facility] 11-01-2023 Evaluation note Encounter Date Diagnosis Assessment Notes Oct, Right otitis media with effusion (ICD-10 - H65.91) Drink plenty fluids, get plenty of rest. Take the amoxicillin with clavulanate as prescribed until gone. Use the fluticasone nasal spray as prescribed once or twice a day until symptoms improve. Follow-up with your family physician if no improvement in 2 to 3 days. Take Tylenol or Motrin for aches pains or fevers. [facility] Other 05-09-2023 Evaluation note* Encounter Date Diagnosis Assessment Notes Treatment Notes Treatment Clinical Notes March, Right otitis media, unspecified otitis media type (ICD-10 - H66.91) Middle ear infection: adult home care material was printed Drink plenty fluids, get plenty of rest. Take Tylenol or Motrin as needed for aches pains or fevers. Take the amoxicillin as prescribed until gone. Follow-up with your family physician if no improvement in 2 to 3 days [facility] Other Evaluation note* Diagnosis Well woman exam with routine gynecological exam Routine gynecological examination Breast cancer screening by mammogram [facility]* Diagnosis Wellness examination- Primary Metabolic syndrome Dysmetabolic Syndrome X Post-operative hypothyroidism (CMS/HCC) Postsurgical hypothyroidism Insulin resistance Other abnormal glucose Peripheral venous insufficiency Unspecified venous (peripheral) insufficiency Anxiety and depression (CMS/HCC) Chronic peptic ulcer, site unspecified, without hemorrhage or perforation Allergic rhinitis, unspecified seasonality, unspecified trigger Postoperative hypothyroidism (CMS/HCC) Postsurgical hypothyroidism Gastroesophageal reflux disease without esophagitis Esophageal reflux Encounter for screening for coronary artery disease Encounter for screening mammogram for malignant neoplasm of breast Right hip pain Pain in joint, pelvic region and thigh documented in [facility]* Diagnosis Mass of upper outer quadrant of left breast- Primary Overweight Mass of upper outer quadrant of left breast Mass of upper outer quadrant of left breast documented in this encounter [facility]* Diagnosis Gastroesophageal reflux disease without esophagitis Esophageal reflux documented in this encounter [facility] HealthcareEvaluation noteNo assessment information availableGrand Lake Joint [facility] Work Phone: Evaluation note* Diagnosis Metabolic syndrome Dysmetabolic Syndrome X documented [facility] encounter [facility] Healthcare[facility]* Diagnosis Postoperative hypothyroidism Postsurgical hypothyroidism Insulin resistance Other abnormal glucose Encounter for screening for coronary artery disease documented in this encounter [facility] Healthcare[facility] note* Diagnosis Postoperative hypothyroidism Postsurgical hypothyroidism Metabolic syndrome Dysmetabolic Syndrome X Gastroesophageal reflux disease without esophagitis Esophageal reflux Chronic peptic ulcer, site unspecified, without hemorrhage or perforation Anxiety and depression Allergic rhinitis, unspecified seasonality, unspecified trigger Insulin resistance Other abnormal glucose Encounter for screening for coronary artery disease Right hip pain Pain in joint, pelvic region and thigh documented in this encounter [facility] HealthcareHistory general Narrative - Reported* Type Description Date Medical History thyroid Medical History anxiety/depression Medical History insulin resistant Medical History gastritis Medical History ulcers Surgical History partial thyroid removal 2017 Surgical History hysterectomy 2020 Surgical History EGD- can 2019 Surgical History D&C 2019 Surgical History left knee scopes [phone] Hospitalization History see surgical hx [facility] Other Summary Purpose Family History No Family History Records Found Relationship Condition Age at Onset Recorded Date/T sydnee father Unknown Family history of mental disorder Unknown mother Hypertension Unknown Advance Directives No Advanced Directives Records Found Advance Directive Response Recorded Date/ Time Advance Directives No April 19 2:34pm Chief Complaint and Reason for Visit Chief Complaint Admit Date Left earache, poss infected tooth April 192024 2:36pm Additional Source Comments INFORMATION SOURCE (unrecogn ized section and content) DATE CREATED AUTHOR 10/01/2022 [facility] DATE CREATED AUTHOR AUTHOR'S ORGANIZ ATION 08/15/2025 [facility] DATE CREATED AUTHOR AUTHOR'S ORGANIZ ATION 08/22/2025 [facility] EPIC REASON FOR VISIT (unrecogniz ed section and content) Reason Comments Gynecologic Exam Reason Comments Med Refill Reason Comments Med Refill Reason Onset Date Comments Med Refill 04/22/2025 Reason Comments Follow-up Care Teams (unrecognized sec tion and content) Coordinator Of Genetic Services Relationship Specialty Start Date End Date Glenn Baker DO [address] [place] [address] PCP - Medical [facility] 11/20/22 11/19/99 Shaikh Dickens MD [address] [place] [address] PCP - General Internal Medicine 07/18/24 Coordinator Of Genetic Services Relationship Specialty Start Date End Date Glenn Baker DO [address] [place] [address] PCP - Medical [facility] 11/20/22 11/19/99 Coordinator Of Genetic Services Relationship Specialty Start Date End Date Glenn Baker DO [address] [place] [address] PCP - Medical [facility] 11/20/22 11/19/99 Coordinator Of Genetic Services Relationship Specialty Start Date End Date Olivia Glenn Ena DO [address] [place] [address] PCP - Medical [facility] 11/20/22 11/19/99 Olivia Glenn Sutherland, DO [address] [place] [address] PCP - General Family Medicine 10/07/24 Coordinator Of Genetic Services Relationship Specialty Start Date End Date Glenn Baker DO [address] [place] [address] PCP - Medical [facility] 11/20/22 11/19/99 Coordinator Of Genetic Services Relationship Specialty Start Date End Date Glenn Baker DO [address] [place] [address] PCP - Medical [facility] 11/20/22 11/19/99 Glenn Baker DO [address] [place] [address] PCP - General Family Medicine 10/07/24 Coordinator Of Genetic Services Relationship Specialty Start Date End Date Glenn Baker DO [address] [place] [address] PCP - Medical [facility] 11/20/22 11/19/99 Glenn Baker DO [address] [place] [address] PCP - General Family Medicine 10/07/24 Team Status: Active Member Role Status Dates Flaco Maria DO Primary Care Provider Active Team Status: Inactive Member Role Status Dates Flaco Maria DO Primary Care Provider Active Start: April 19, 2025 End: April 19, 2025 Amalia Alvarez APRN Attending Provider Active Start: April 19, 2025 End: April 19, 2025 Coordinator Of Genetic Services Relationship Specialty Start Date End Date Glenn Baker DO [address] [place] [address] PCP - Medical [facility] 11/20/22 11/19/99 Glenn Baker DO [address] [place] [address] PCP - General Family Medicine 10/07/24 Coordinator Of Genetic Services Relationship Specialty Start Date End Date Glenn Baker DO [address] [place] [address] PCP - General Family Medicine 10/07/24 Coordinator Of Genetic Services Relationship Specialty Start Date End Date Glenn Baker DO [address] [place] [address] PCP - General Family Medicine 10/07/24 Coordinator Of Genetic Services Relationship Specialty Start Date End Date Glenn Baker DO [address] [place] [address] PCP - General Family Medicine 10/07/24 Goals (unrecognized section and content) Goals may be documented in a n alternate section FOR RECORDS PERTAINING TO PATIENTS WHO ARE OR HAVE BEEN ENROLLED IN A CHEMICAL DEPENDENCY/SUBSTANCEABUSE PROGRAM, SOME INFORMATION MAY BE OMITTED. This clinical summary was aggregated from multiple sources. Caution should be exercised in using it in the provision of clinical care. This summary normalizes information from multiple sources, and as a consequence, information in this document may materially change the coding, format and clinical context of patient data. In addition, data may be omitted in some cases. CLINICAL DECISIONS SHOULD BE BASED ON THE PRIMARY CLINICAL RECORDS. [employer] [facility]. provides no warranty or guarantee of the accuracy or completeness of information in this document.
== END 2025-09-01 21:19 | disposition home or self-care (01) ==
LOC: LAB 21:18
PROVIDERS: Visit Provider Obstetrics & Gynecology
DX: Z01.419 Encounter for gynecological examination (general) (routine) without abnormal findings (principal)
CPT/HCPCS: 87624; 88175